=== PATIENT | female | born 1945 | race African-American/Black ===

== ENCOUNTER 2018-08-21 02:12 | Emergency (ER) | payer MEDICARE, MEDICAID ==
[~2018-08-21] VITALS: Ht 172.7 cm; Wt 105.0 kg
[~2018-08-21 02:12] MED LIST: ALLO100T PO; ASPI-1159 PO; ATEN100T PO; CLON-457 PO; ENAL5TAB75 PO; PRAV40TA58 PO
[2018-08-21] MEDS ORDERED: SODIUM CHLORIDE 0.9% 1,000 ML IV ONE (03:21)
[2018-08-21] MEDS ORDERED: ONDANSETRON HCL 4MG/2ML INJ IV STA (03:21)
[2018-08-21 03:54] LABS: HEMOGLOBIN. 10.7 g/dL (12.0-16.0); MEAN CORPUSCULAR HEMOGLOBIN 23.9 pg (28.0-32.0); MEAN CORPUSCULAR VOLUME 75.7 fL (81.0-99.0); MEAN PLATELET VOLUME 8.6 fl (7.4-10.4); PLATELET 318 x1000/uL (130-400); RED BLOOD CELL COUNT 4.49 mill/uL (4.2-5.4); RED CELL DISTRIBUTION WIDTH 17.5 % (11.6-14.6)
[2018-08-21 03:57] LABS: CHLORIDE 104 mEq/L (98-107)
[2018-08-21 04:00] LABS: PROTHROMBIN TIME 10.4 sec (9.1-11.1)
[2018-08-21 04:13] LABS: CLARITY URINE CLOUDY (CLEAR); COLOR URINE YELLOW (YELLOW); KETONES URINE NEGATIVE (NEGATIVE); LEUKOCYTE ESTERASE URINE 2+ (NEGATIVE); NITRITE URINE NEGATIVE (NEGATIVE); OCCULT BLOOD URINE NEGATIVE (NEGATIVE); PH URINE 5.5 (4.5-8.0); PROTEIN URINE NEGATIVE (NEGATIVE)
[2018-08-21 04:29] LABS: PLATELET ESTIMATE NORMAL
[2018-08-21] MEDS ORDERED: CEFTRIAXONE 1 G PREMIX 50 ML IV NR (04:30)
[2018-08-21 04:57] VITALS: BP 118/61
== END 2018-08-21 05:25 | disposition home or self-care (01) ==
LOC: ER 03:31 → CANBEDREQ 06:53
DX: R11.2 Nausea with vomiting, unspecified (principal); R19.7 Diarrhea, unspecified; N39.0 Urinary tract infection, site not specified
CPT/HCPCS: 36415; 80053; 81003; 83690; 85025; 85610; 96361; 96365; 96375; 99284; J0696; J2405; J7030

== ENCOUNTER 2020-05-19 10:58 | Inpatient (IN) | payer MEDICARE, MEDICAID ==
[~2020-05-19] VITALS: Ht 174 cm; Wt 101.6 kg
[~2020-05-19 10:58] MED LIST changes: -ASPI-1159 PO; +ASPI-1497 PO
[2020-05-19 11:47] LABS: MEAN CORPUSCULAR HEMOGLOBIN 24.3 pg (28.0-32.0); MEAN PLATELET VOLUME 8.5 fl (7.4-10.4); PLATELET 169 x1000/uL (130-400); RED BLOOD CELL COUNT 2.58 mill/uL (4.2-5.4); RED CELL DISTRIBUTION WIDTH 16.5 % (11.6-14.6)
[2020-05-19 11:54] LABS: CHLORIDE 122 mEq/L (98-107)
[2020-05-19 11:55] LABS: CLARITY URINE TURBID (CLEAR); COLOR URINE DARK YELLOW (YELLOW); KETONES URINE TRACE (NEGATIVE); LEUKOCYTE ESTERASE URINE 3+ (NEGATIVE); NITRITE URINE NEGATIVE (NEGATIVE); OCCULT BLOOD URINE NEGATIVE (NEGATIVE); PROTEIN URINE 1+ (NEGATIVE); SPECIFIC GRAVITY URINE 1.018 (1.005-1.030)
[2020-05-19 11:56] LABS: INR 1.3; PROTHROMBIN TIME 13.9 sec (9.6-11.0)
[2020-05-19 12:01] LABS: HEMATOCRIT. 20.1 % (36.0-48.0); HEMOGLOBIN. 6.3 g/dL (12.0-16.0)
[2020-05-19 12:02] LABS: BASOPHILS % 0.6 % (0.0-2.0); EOSINOPHILS % 1.4 % (0.0-5.0); MONOCYTES % 7.5 % (2.0-8.0); NEUTROPHILS % 67.5 % (40.0-76.0)
[2020-05-19] MEDS ORDERED: SODIUM CHLORIDE 0.9% 1,000 ML IV ONE (13:11)
[2020-05-19] MEDS ORDERED: POTASSIUM CHLORIDE 20MEQ TABLET SR PO ONE (13:15)
[2020-05-19] MEDS ORDERED: METRONIDAZOLE 500 MG PREMIX 100 ML IV ONE (14:45)
[2020-05-19] MEDS ORDERED: LEVOFLOXACIN 750MG PREMIX 150 ML IV ONE (14:45)
[2020-05-19] MEDS ORDERED: CLONIDINE 0.1MG TABLET PO PRN (18:00)
[2020-05-19] MEDS ORDERED: ACETAMINOPHEN 325MG TABLET PO PRN ×2 (18:00)
[2020-05-19] MEDS ORDERED: ONDANSETRON HCL 4MG/2ML INJ IV PRN (18:00)
[2020-05-19] MEDS ORDERED: DIPHENHYDRAMINE 50MG/ML VIAL IV PRN (18:00)
[2020-05-19] MEDS ORDERED: CALCIUM GLUCONATE 100MG/ML 10ML VIAL IV ONE (19:30)
[2020-05-19 19:48] LABS: TOTAL IRON BINDING CAPACITY 216 ug/dL (250-450)
[2020-05-19] MEDS ORDERED: ZOLPIDEM TARTRATE 5MG TABLET PO PRN (20:00)
[2020-05-19 20:25] VITALS: BP 134/83
[2020-05-19] MEDS ORDERED: CALCIUM GLUCONATE 1000 MG in DEXTROSE 5% WATER 100 ML IV NR (20:30)
[2020-05-19] MEDS ORDERED: MAGNESIUM 4 G PREMIX 100 ML IV NR (21:00)
[2020-05-19] MEDS ORDERED: CEFTRIAXONE 1 G PREMIX 50 ML IV SCH (21:00)
[2020-05-19] MEDS ORDERED: METRONIDAZOLE 500 MG PREMIX 100 ML IV SCH (22:00)
[2020-05-19] MEDS ORDERED: POTASSIUM PHOS,M-BASIC-D-BASIC 30 MMOL in DEXT 5% WATER 500 ML IV NR (22:00)
[2020-05-19] MEDS: DEXT 5%/0.45% NACL KCL 40MEQ/L 1,000 ML IV SCH (22:14)
[2020-05-19] MEDS: FAMOTIDINE 20MG/2ML VIAL IV SCH (22:14)
[2020-05-19] MEDS: CEFTRIAXONE 1,000 MG in DEXTROSE 5% WATER 50 ML IV SCH (22:59)
[2020-05-20] VITALS (7 sets, daily range): BP systolic 119–136; BP diastolic 63–73
[2020-05-20 00:06] LABS: BASOPHILS % 0.5 % (0.0-2.0); EOSINOPHILS % 2.7 % (0.0-5.0); HEMATOCRIT. 32.8 % (36.0-48.0); HEMOGLOBIN. 10.5 g/dL (12.0-16.0); MEAN CORPUSCULAR VOLUME 77.8 fL (81.0-99.0); MEAN PLATELET VOLUME 8.5 fl (7.4-10.4); NEUTROPHILS % 63.8 % (40.0-76.0); PLATELET 242 x1000/uL (130-400); RED BLOOD CELL COUNT 4.22 mill/uL (4.2-5.4)
[2020-05-20 00:10] LABS: INR 1.1; PROTHROMBIN TIME 11.7 sec (9.6-11.0)
[2020-05-20] MEDS: DEXT 5%/0.45% NACL KCL 40MEQ/L 1,000 ML IV SCH (06:35)
[2020-05-20 06:42] LABS: CHLORIDE 107 mEq/L (98-107)
[2020-05-20 06:50] LABS: BASOPHILS % 0.4 % (0.0-2.0); EOSINOPHILS % 3.1 % (0.0-5.0); HEMATOCRIT. 32.2 % (36.0-48.0); HEMOGLOBIN. 10.5 g/dL (12.0-16.0); LYMPHOCYTES % 21.2 % (20.0-50.0); MEAN CORPUSCULAR HEMOGLOBIN 24.9 pg (28.0-32.0); MEAN CORPUSCULAR VOLUME 76.5 fL (81.0-99.0); MONOCYTES % 9.7 % (2.0-8.0); NEUTROPHILS % 65.6 % (40.0-76.0); PLATELET 252 x1000/uL (130-400); RED CELL DISTRIBUTION WIDTH 16.4 % (11.6-14.6)
[2020-05-20] MEDS: FAMOTIDINE 20MG/2ML VIAL IV SCH ×2 (09:59→21:11)
[2020-05-20] MEDS ORDERED: DEXT 5%/0.45% NACL 1000ML 1,000 ML IV SCH ×2 (11:00→15:05)
[2020-05-20] MEDS ORDERED: LEVOFLOXACIN 500MG PREMIX 100 ML IV SCH (15:00)
[2020-05-20] MEDS: IRON SUCROSE COMPLEX 100 MG/5 ML ML IV SCH (16:10)
[2020-05-20] MEDS ORDERED: FERROUS SULFATE 325MG TABLET PO SCH (17:50)
[2020-05-20] MEDS: CEFTRIAXONE 1,000 MG in DEXTROSE 5% WATER 50 ML IV SCH (21:11)
[2020-05-21] VITALS: BP 121/73
[2020-05-21 04:00] VITALS: BP 113/52
[2020-05-21 08:00] VITALS: BP 112/63
[2020-05-21] MEDS: FAMOTIDINE 20MG/2ML VIAL IV SCH (08:06)
[2020-05-21 12:00] VITALS: BP 146/59
[2020-05-21] MEDS: IRON SUCROSE COMPLEX 100 MG/5 ML ML IV SCH (14:46)
[2020-05-21 15:12] VITALS: BP 112/63
== END 2020-05-21 16:01 | disposition home or self-care (01) | DRG 811 ==
LOC: ER 11:03 → EDBEDREQ 14:45 → EDBEDREQTM 14:45 → ENRESERV 19:43 → 6WST 20:27
PROVIDERS: ADMIT Internal Medicine; ATTEND Internal Medicine
PROC: 30233N1 Transfusion of Nonautologous Red Blood Cells into Peripheral Vein, Percutaneous Approach (ICD-10-PCS; principal; 2020-05-19)
DX: D50.9 Iron deficiency anemia, unspecified (principal); E43 Unspecified severe protein-calorie malnutrition; N39.0 Urinary tract infection, site not specified; K57.32 Diverticulitis of large intestine without perforation or abscess without bleeding; E87.6 Hypokalemia; E83.51 Hypocalcemia; I10 Essential (primary) hypertension; Z96.651 Presence of right artificial knee joint; E78.00 Pure hypercholesterolemia, unspecified; M10.9 Gout, unspecified; F41.9 Anxiety disorder, unspecified; M19.90 Unspecified osteoarthritis, unspecified site; K59.00 Constipation, unspecified; Z68.33 Body mass index [BMI] 33.0-33.9, adult; Z82.49 Family history of ischemic heart disease and other diseases of the circulatory system; Z90.711 Acquired absence of uterus with remaining cervical stump
CPT/HCPCS: 36415; 74176; 80048; 80053; 81003; 82270; 82728; 83520; 83540; 83550; 83735; 84100; 85025; 85384; 86850; 86900; 86920; 93005; 99291; J0610; J0696; J1956; J3475; J3490; J7030; J7060; P9016

== ENCOUNTER 2021-01-24 02:30 | Emergency (ER) | payer MEDICARE, MEDICAID ==
[~2021-01-24] VITALS: Ht 172.7 cm; Wt 94.0 kg
[2021-01-24 02:37] VITALS: BP 155/82
== END 2021-01-24 04:04 | disposition home or self-care (01) ==
LOC: ER 02:30
DX: H93.12 Tinnitus, left ear (principal); I10 Essential (primary) hypertension; E78.00 Pure hypercholesterolemia, unspecified
CPT/HCPCS: 99282

== ENCOUNTER 2022-02-01 08:44 | Emergency (ER) | payer MEDICARE, MEDICAID ==
[~2022-02-01] VITALS: Ht 172.7 cm; Wt 87.0 kg
[2022-02-01] MEDS ORDERED: NAPR-677 MT (10:11)
[2022-02-01] MEDS ORDERED: CIPR-263 MT (10:11)
[2022-02-01] MEDS ORDERED: PYR200 MT (10:11)
[2022-02-01 10:33] VITALS: BP 115/71
[2022-02-01 12:02] LABS: CLARITY URINE CLOUDY (CLEAR); COLOR URINE YELLOW (YELLOW); KETONES URINE NEGATIVE (NEGATIVE); LEUKOCYTE ESTERASE URINE 1+ (NEGATIVE); NITRITE URINE NEGATIVE (NEGATIVE); OCCULT BLOOD URINE NEGATIVE (NEGATIVE); PH URINE 5.5 (4.5-8.0); PROTEIN URINE 3+ (NEGATIVE); SPECIFIC GRAVITY URINE 1.017 (1.005-1.030); UROBILINOGEN URINE 0.2 E.U./dL (0.2-1.0)
== END 2022-02-01 10:34 | disposition home or self-care (01) ==
LOC: ER 08:44
DX: N39.0 Urinary tract infection, site not specified (principal); K59.00 Constipation, unspecified; Z87.19 Personal history of other diseases of the digestive system
CPT/HCPCS: 81003; 99283

== ENCOUNTER 2022-02-23 21:04 | Emergency (ER) | payer MEDICARE, MEDICAID ==
[~2022-02-23] VITALS: Ht 172.7 cm; Wt 88.0 kg
[~2022-02-23 21:04] MED LIST changes: +CHOL2000; +CIPR-263 MT; +FERR325T6 MT; +INDO50CA98 PO; +NAPR-677 MT; +OMEP20CA14 MT; +PYR200 MT
[2022-02-23 21:19] VITALS: BP 142/100
[2022-02-23 22:55] LABS: CLARITY URINE TURBID (CLEAR); COLOR URINE DARK YELLOW (YELLOW); KETONES URINE TRACE (NEGATIVE); LEUKOCYTE ESTERASE URINE 3+ (NEGATIVE); NITRITE URINE NEGATIVE (NEGATIVE); OCCULT BLOOD URINE 3+ (NEGATIVE); PROTEIN URINE 2+ (NEGATIVE); SPECIFIC GRAVITY URINE 1.014 (1.005-1.030); UROBILINOGEN URINE 0.2 E.U./dL (0.2-1.0)
== END 2022-02-23 23:40 | disposition home or self-care (01) ==
LOC: ER 21:04
DX: N39.0 Urinary tract infection, site not specified (principal); R31.0 Gross hematuria; Z43.6 Encounter for attention to other artificial openings of urinary tract; I10 Essential (primary) hypertension
CPT/HCPCS: 81003; 99283

== ENCOUNTER 2022-03-03 06:38 | Emergency (ER) | payer MEDICARE, MEDICAID ==
[~2022-03-03] VITALS: Ht 172.7 cm; Wt 90.0 kg
[2022-03-03] MEDS ORDERED: ONDANSETRON HCL 4MG/2ML INJ IV STA (06:58)
[2022-03-03] MEDS ORDERED: SODIUM CHLORIDE 0.9% 1,000 ML IV ONE (07:00)
[2022-03-03 07:29] LABS: BASOPHILS % 0.8 % (0.0-2.0); EOSINOPHILS % 2.9 % (0.0-5.0); HEMATOCRIT. 30.7 % (36.0-48.0); HEMOGLOBIN. 9.6 g/dL (12.0-16.0); LYMPHOCYTES % 16.9 % (20.0-50.0); MEAN CORPUSCULAR HEMOGLOBIN 23.3 pg (28.0-32.0); MEAN CORPUSCULAR VOLUME 74.8 fL (81.0-99.0); MEAN PLATELET VOLUME 8.5 fl (7.4-10.4); MONOCYTES % 8.5 % (2.0-8.0); NEUTROPHILS % 70.9 % (40.0-76.0); PLATELET 366 x1000/uL (130-400); RED BLOOD CELL COUNT 4.11 mill/uL (4.2-5.4); RED CELL DISTRIBUTION WIDTH 15.8 % (11.6-14.6)
[2022-03-03 08:11] LABS: CHLORIDE 100 mEq/L (98-107)
[2022-03-03 08:24] LABS: CLARITY URINE CLOUDY (CLEAR); COLOR URINE YELLOW (YELLOW); KETONES URINE NEGATIVE (NEGATIVE); LEUKOCYTE ESTERASE URINE 3+ (NEGATIVE); NITRITE URINE NEGATIVE (NEGATIVE); OCCULT BLOOD URINE 1+ (NEGATIVE); PROTEIN URINE TRACE (NEGATIVE); SPECIFIC GRAVITY URINE 1.006 (1.005-1.030); UROBILINOGEN URINE 0.2 E.U./dL (0.2-1.0)
[2022-03-03 10:00] VITALS: BP 120/53
[2022-03-03] MEDS ORDERED: ONDA4TAB50 MT (10:34)
== END 2022-03-03 11:43 | disposition home or self-care (01) ==
LOC: ER 06:38
DX: R11.2 Nausea with vomiting, unspecified (principal); E78.00 Pure hypercholesterolemia, unspecified; I10 Essential (primary) hypertension; Z87.440 Personal history of urinary (tract) infections; Z90.710 Acquired absence of both cervix and uterus; Z79.899 Other long term (current) drug therapy
CPT/HCPCS: 36415; 80053; 81003; 85025; 87086; 87106; 96361; 96374; 99283; J2405; J7030

== ENCOUNTER 2022-03-23 11:26 | Emergency (ER) | payer MEDICARE, MEDICAID ==
[~2022-03-23] VITALS: Ht 160 cm; Wt 91.0 kg
[~2022-03-23 11:26] MED LIST changes: +ONDA4TAB50 MT
[2022-03-23] MEDS ORDERED: ACETAMINOPHEN 325MG TABLET PO ONE (12:45)
[2022-03-23 13:01] LABS: HEMATOCRIT. 35.5 % (36.0-48.0); HEMOGLOBIN. 11.3 g/dL (12.0-16.0); MEAN CORPUSCULAR HEMOGLOBIN 23.3 pg (28.0-32.0); MEAN CORPUSCULAR VOLUME 73.4 fL (81.0-99.0); MEAN PLATELET VOLUME 7.8 fl (7.4-10.4); PLATELET 272 x1000/uL (130-400); RED BLOOD CELL COUNT 4.83 mill/uL (4.2-5.4); RED CELL DISTRIBUTION WIDTH 15.5 % (11.6-14.6)
[2022-03-23 13:42] LABS: PLATELET ESTIMATE NORMAL
[2022-03-23 13:48] LABS: CLARITY URINE CLOUDY (CLEAR); COLOR URINE YELLOW (YELLOW); KETONES URINE NEGATIVE (NEGATIVE); LEUKOCYTE ESTERASE URINE 3+ (NEGATIVE); NITRITE URINE NEGATIVE (NEGATIVE); OCCULT BLOOD URINE 3+ (NEGATIVE); PROTEIN URINE TRACE (NEGATIVE); SPECIFIC GRAVITY URINE 1.006 (1.005-1.030); UROBILINOGEN URINE 0.2 E.U./dL (0.2-1.0)
[2022-03-23] MEDS ORDERED: CEFTRIAXONE 1 G PREMIX 50 ML IV ONE (14:15)
[2022-03-23 14:47] VITALS: BP 142/73
[2022-03-23] MEDS ORDERED: DIF15 MT (14:52)
[2022-03-23] MEDS ORDERED: CIPR-263 MT (14:52)
== END 2022-03-23 15:00 | disposition home or self-care (01) ==
LOC: ER 11:26
DX: R30.0 Dysuria (principal); N39.0 Urinary tract infection, site not specified; E78.00 Pure hypercholesterolemia, unspecified; I10 Essential (primary) hypertension; Z87.440 Personal history of urinary (tract) infections; Z90.710 Acquired absence of both cervix and uterus; Z79.899 Other long term (current) drug therapy
CPT/HCPCS: 96365; 99284; J0696; 36415; 76857; 80048; 81003; 85025; 87106

== ENCOUNTER 2022-03-24 07:41 | Inpatient (IN) | payer MEDICARE, MEDICAID ==
[~2022-03-24] VITALS: Ht 162.6 cm; Wt 63.5 kg
[~2022-03-24 07:41] MED LIST changes: +DIF15 MT
[2022-03-24] MEDS ORDERED: ONDANSETRON HCL 4MG/2ML INJ IV STA (08:05)
[2022-03-24] MEDS ORDERED: IOHEXOL-350 100 ML BOTTLE ONE (08:41)
[2022-03-24 09:05] LABS: BASOPHILS % 0.5 % (0.0-2.0); EOSINOPHILS % 1.2 % (0.0-5.0); HEMATOCRIT. 34.4 % (36.0-48.0); LYMPHOCYTES % 27.3 % (20.0-50.0); MEAN CORPUSCULAR HEMOGLOBIN 23.7 pg (28.0-32.0); MEAN CORPUSCULAR VOLUME 74.1 fL (81.0-99.0); MEAN PLATELET VOLUME 7.9 fl (7.4-10.4); MONOCYTES % 13.6 % (2.0-8.0); NEUTROPHILS % 57.4 % (40.0-76.0); PLATELET 289 x1000/uL (130-400); RED BLOOD CELL COUNT 4.64 mill/uL (4.2-5.4); RED CELL DISTRIBUTION WIDTH 15.1 % (11.6-14.6)
[2022-03-24] MEDS ORDERED: ASPIRIN 81MG TABLET PO ONE (09:15)
[2022-03-24 09:17] LABS: CHLORIDE 88 mEq/L (98-107)
[2022-03-24 09:26] LABS: CLARITY URINE TURBID (CLEAR); COLOR URINE DARK YELLOW (YELLOW); KETONES URINE NEGATIVE (NEGATIVE); LEUKOCYTE ESTERASE URINE 3+ (NEGATIVE); NITRITE URINE NEGATIVE (NEGATIVE); OCCULT BLOOD URINE 3+ (NEGATIVE); PROTEIN URINE 1+ (NEGATIVE); UROBILINOGEN URINE 0.2 E.U./dL (0.2-1.0)
[2022-03-24] MEDS ORDERED: CEFTRIAXONE 1 G PREMIX 50 ML IV ONE (11:45)
[2022-03-24] MEDS ORDERED: CEFTRIAXONE 1,000 MG in DEXTROSE 5% WATER 50 ML IV NR (12:00)
[2022-03-24] MEDS ORDERED: CEFTRIAXONE 1 G PREMIX 50 ML IV SCH (12:45)
[2022-03-24] MEDS ORDERED: DIPHENHYDRAMINE 50MG/ML VIAL IV PRN (12:45)
[2022-03-24] MEDS ORDERED: ZOLPIDEM TARTRATE 5MG TABLET PO PRN (12:45)
[2022-03-24] MEDS ORDERED: CLONIDINE 0.1MG TABLET PO PRN (12:45)
[2022-03-24] MEDS ORDERED: LORAZEPAM 0.5MG TABLET PO PRN (12:45)
[2022-03-24] MEDS ORDERED: MAGNESIUM/ALUMINUM HYDROXIDE/SIMETHICONE 30ML UDC PO PRN (12:45)
[2022-03-24] MEDS ORDERED: ACETAMINOPHEN 325MG TABLET PO PRN (12:45)
[2022-03-24] MEDS ORDERED: ONDANSETRON HCL 4MG/2ML INJ IV PRN (12:45)
[2022-03-24 14:00] VITALS: BP_SYST 143; BP_SYST 177; BP_DIAS 71; BP_DIAS 88
[2022-03-24] MEDS ORDERED: ERGOCALCIFEROL 50000UNITS CAPSULE PO SCH (14:00)
[2022-03-24] MEDS: SODIUM CHLORIDE 0.9% 1,000 ML IV SCH ×2 (14:28→22:45)
[2022-03-24 16:00] VITALS: BP 139/69
[2022-03-24] MEDS: SODIUM CHLORIDE 1000MG TABLET PO SCH (17:03)
[2022-03-24] MEDS: ACETAMINOPHEN 325MG TABLET PO PRN (19:01)
[2022-03-24 20:00] VITALS: BP 113/63
[2022-03-24] MEDS: ENALAPRIL 5MG TABLET PO SCH (21:00)
[2022-03-24] MEDS: ATORVASTATIN CALCIUM 20MG TABLET PO SCH (22:03)
[2022-03-25] VITALS: BP 120/80
[2022-03-25] MEDS: SODIUM CHLORIDE 0.9% 1,000 ML IV SCH ×2 (00:59→17:36)
[2022-03-25 06:57] LABS: PHOSPHORUS 3.2 mg/dL (2.5-4.9)
[2022-03-25 08:00] VITALS: BP 102/57
[2022-03-25] MEDS: ENALAPRIL 5MG TABLET PO SCH ×2 (08:10→23:40)
[2022-03-25] MEDS: SODIUM CHLORIDE 1000MG TABLET PO SCH ×3 (08:39→17:35)
[2022-03-25] MEDS: ASPIRIN 81MG EC TABLET PO SCH (08:39)
[2022-03-25] MEDS: ALLOPURINOL 100 MG TABLET PO SCH (08:39)
[2022-03-25 12:00] VITALS: BP 122/59
[2022-03-25] MEDS: CEFTRIAXONE 1,000 MG in DEXTROSE 5% WATER 50 ML IV SCH (12:13)
[2022-03-25] MEDS: ACETAMINOPHEN 325MG TABLET PO PRN (12:23)
[2022-03-25] MEDS ORDERED: MAGNESIUM 4 G PREMIX 100 ML IV SCH (13:00)
[2022-03-25 16:00] VITALS: BP 103/74
[2022-03-25 20:00] VITALS: BP 125/58
[2022-03-25] MEDS: ATORVASTATIN CALCIUM 20MG TABLET PO SCH (23:39)
[2022-03-26] VITALS: BP 119/58
[2022-03-26] MEDS: CLOTRIMAZOLE 1% CREAM 15GM TOP SCH ×3 (03:25→21:38)
[2022-03-26 04:55] VITALS: BP 99/53
[2022-03-26] MEDS: SODIUM CHLORIDE 0.9% 1,000 ML IV SCH ×2 (05:14→14:43)
[2022-03-26 08:00] VITALS: BP 130/64
[2022-03-26 08:03] LABS: CHLORIDE 105 mEq/L (98-107)
[2022-03-26] MEDS: ASPIRIN 81MG EC TABLET PO SCH (08:51)
[2022-03-26] MEDS: ENALAPRIL 5MG TABLET PO SCH ×2 (08:51→21:38)
[2022-03-26] MEDS: ALLOPURINOL 100 MG TABLET PO SCH (08:51)
[2022-03-26] MEDS: SODIUM CHLORIDE 1000MG TABLET PO SCH ×3 (08:51→18:06)
[2022-03-26 12:00] VITALS: BP 114/68
[2022-03-26] MEDS: CEFTRIAXONE 1,000 MG in DEXTROSE 5% WATER 50 ML IV SCH (12:52)
[2022-03-26 16:00] VITALS: BP 111/70
[2022-03-26] MEDS: PHENAZOPYRIDINE HCL 100MG TABLET PO SCH (18:06)
[2022-03-26 20:00] VITALS: BP 166/83
[2022-03-26] MEDS: ATORVASTATIN CALCIUM 20MG TABLET PO SCH (21:38)
[2022-03-27] VITALS: BP 148/65
[2022-03-27] MEDS: SODIUM CHLORIDE 0.9% 1,000 ML IV SCH (00:45)
[2022-03-27 04:00] VITALS: BP 124/71
[2022-03-27 06:34] LABS: BASOPHILS % 0.4 % (0.0-2.0); HEMATOCRIT. 29.6 % (36.0-48.0); HEMOGLOBIN. 9.5 g/dL (12.0-16.0); LYMPHOCYTES % 24.9 % (20.0-50.0); MEAN CORPUSCULAR HEMOGLOBIN 23.6 pg (28.0-32.0); MEAN CORPUSCULAR VOLUME 73.2 fL (81.0-99.0); MEAN PLATELET VOLUME 7.7 fl (7.4-10.4); MONOCYTES % 10.4 % (2.0-8.0); NEUTROPHILS % 59.3 % (40.0-76.0); PLATELET 303 x1000/uL (130-400); RED BLOOD CELL COUNT 4.05 mill/uL (4.2-5.4); RED CELL DISTRIBUTION WIDTH 15.4 % (11.6-14.6)
[2022-03-27 07:31] LABS: CHLORIDE 106 mEq/L (98-107)
[2022-03-27 07:40] LABS: PHOSPHORUS 2.6 mg/dL (2.5-4.9)
[2022-03-27 08:00] VITALS: BP 149/74
[2022-03-27] MEDS: ENALAPRIL 5MG TABLET PO SCH (08:20)
[2022-03-27] MEDS: SODIUM CHLORIDE 1000MG TABLET PO SCH ×2 (08:20→13:24)
[2022-03-27] MEDS: ASPIRIN 81MG EC TABLET PO SCH (08:20)
[2022-03-27] MEDS: PHENAZOPYRIDINE HCL 100MG TABLET PO SCH ×2 (08:21→13:24)
[2022-03-27] MEDS: ALLOPURINOL 100 MG TABLET PO SCH (08:21)
[2022-03-27] MEDS: CLOTRIMAZOLE 1% CREAM 15GM TOP SCH (08:21)
[2022-03-27] MEDS ORDERED: MAGNESIUM 4 G PREMIX 100 ML IV SCH (11:00)
[2022-03-27 12:00] VITALS: BP 143/74
[2022-03-27] MEDS: CEFTRIAXONE 1,000 MG in DEXTROSE 5% WATER 50 ML IV SCH (13:24)
[2022-03-27 16:00] VITALS: BP 140/68
[2022-03-27 16:54] VITALS: BP 120/72
== END 2022-03-27 18:37 | disposition home or self-care (01) | DRG 640 ==
LOC: ER 08:21 → 7EST 11:05 → EDBEDREQ 11:14 → EDBEDREQSVC 11:14 → ENRESERV 12:30
PROVIDERS: ADMIT Internal Medicine; ATTEND Internal Medicine
DX: E87.1 Hypo-osmolality and hyponatremia (principal); U07.1 COVID-19; G93.40 Encephalopathy, unspecified; N17.9 Acute kidney failure, unspecified; N32.1 Vesicointestinal fistula; N39.0 Urinary tract infection, site not specified; R47.01 Aphasia; E78.00 Pure hypercholesterolemia, unspecified; E83.42 Hypomagnesemia; E86.0 Dehydration; Z96.651 Presence of right artificial knee joint; M19.90 Unspecified osteoarthritis, unspecified site; M10.9 Gout, unspecified; F41.9 Anxiety disorder, unspecified; I10 Essential (primary) hypertension; Z82.0 Family history of epilepsy and other diseases of the nervous system; Z82.49 Family history of ischemic heart disease and other diseases of the circulatory system; Z90.711 Acquired absence of uterus with remaining cervical stump; Z79.899 Other long term (current) drug therapy; Z79.82 Long term (current) use of aspirin; Z87.440 Personal history of urinary (tract) infections
CPT/HCPCS: 36415; 70496; 71045; 76857; 80048; 80053; 81003; 83036; 83605; 83735; 84100; 84484; 85025; 87106; 87426; 93005; 99291; C9803; J0696; J2405; J3475; J7030; J7060; Q9967; A4315

== ENCOUNTER 2022-03-30 20:41 | Emergency (ER) | payer MEDICARE, MEDICAID ==
[~2022-03-30] VITALS: Ht 165.1 cm; Wt 80.1 kg
[2022-03-30 21:27] VITALS: BP 114/59
== END 2022-03-31 01:45 | disposition left against medical advice (07) ==
LOC: ER 20:41
DX: Z53.21 Procedure and treatment not carried out due to patient leaving prior to being seen by health care provider (principal)

== ENCOUNTER 2022-04-15 21:59 | Inpatient (IN) | payer MEDICARE, MEDICAID ==
[~2022-04-15] VITALS: Ht 174 cm; Wt 79.4 kg
[2022-04-15 22:05] VITALS: BP 114/69
[2022-04-15] MEDS ORDERED: ACETAMINOPHEN 650MG SUPP PR PRN (23:00)
[2022-04-15] MEDS ORDERED: ONDANSETRON HCL 4MG TABLET PO PRN (23:00)
[2022-04-15] MEDS ORDERED: ACETAMINOPHEN 325MG TABLET PO PRN (23:00)
[2022-04-15] MEDS ORDERED: GUAIFENESIN 200MG/10ML SUGAR FREE UDC PO PRN (23:00)
[2022-04-15] MEDS ORDERED: NALOXONE HCL 0.4MG/ML VIAL IV PRN (23:30)
[2022-04-15] MEDS: PIPERACILLIN/TAZOBACTAM 3.375 G in DEXTROSE 5% WATER 50 ML IV SCH (23:55)
[2022-04-16] MEDS: PIPERACILLIN/TAZOBACTAM 3.375 G in DEXTROSE 5% WATER 50 ML IV SCH ×3 (06:15→21:00)
[2022-04-16] MEDS: HYDROCODONE/ACETAMINOPHEN 5/325MG TABLET PO PRN ×3 (06:23→17:43)
[2022-04-16 07:32] LABS: HEMATOCRIT. 25.9 % (36.0-48.0); HEMOGLOBIN. 8.3 g/dL (12.0-16.0); MEAN CORPUSCULAR HEMOGLOBIN 23.5 pg (28.0-32.0); MEAN CORPUSCULAR VOLUME 73.5 fL (81.0-99.0); MEAN PLATELET VOLUME 7.5 fl (7.4-10.4); PLATELET 473 x1000/uL (130-400); RED BLOOD CELL COUNT 3.52 mill/uL (4.2-5.4); RED CELL DISTRIBUTION WIDTH 16.2 % (11.6-14.6)
[2022-04-16 07:47] LABS: CHLORIDE 102 mEq/L (98-107)
[2022-04-16 08:00] VITALS: BP 126/61
[2022-04-16] MEDS ORDERED: POTASSIUM CHLORIDE 20MEQ TABLET SR PO NR ×2 (08:00→10:30)
[2022-04-16] MEDS ORDERED: POTASSIUM CHLORIDE 20MEQ TABLET SR PO SCH ×2 (09:00→12:30)
[2022-04-16] MEDS: LACTULOSE 20G/30ML UDC PO SCH (10:39)
[2022-04-16] MEDS: ENOXAPARIN 40MG/0.4ML SYR SUBCUT SCH (10:39)
[2022-04-16] MEDS: ATENOLOL 50 MG TABLET PO SCH (10:40)
[2022-04-16] MEDS: ALLOPURINOL 100 MG TABLET PO SCH (10:41)
[2022-04-16] MEDS: PANTOPRAZOLE 40MG DR TABLET PO SCH (10:41)
[2022-04-16 12:52] LABS: PLATELET ESTIMATE INCREASED
[2022-04-16 20:31] VITALS: BP 113/65
[2022-04-16] MEDS ORDERED: BISACODYL 10MG SUPP PR NR (21:00)
[2022-04-17] MEDS: HYDROCODONE/ACETAMINOPHEN 5/325MG TABLET PO PRN ×2 (01:45→09:53)
[2022-04-17] MEDS: PIPERACILLIN/TAZOBACTAM 3.375 G in DEXTROSE 5% WATER 50 ML IV SCH (06:01)
[2022-04-17 06:07] LABS: HEMATOCRIT. 26.6 % (36.0-48.0); MEAN CORPUSCULAR HEMOGLOBIN 24.6 pg (28.0-32.0); MEAN CORPUSCULAR VOLUME 73.2 fL (81.0-99.0); MEAN PLATELET VOLUME 7.6 fl (7.4-10.4); PLATELET 502 x1000/uL (130-400); RED BLOOD CELL COUNT 3.64 mill/uL (4.2-5.4); RED CELL DISTRIBUTION WIDTH 16.5 % (11.6-14.6)
[2022-04-17 06:37] LABS: CHLORIDE 103 mEq/L (98-107)
[2022-04-17 06:55] LABS: TOTAL IRON BINDING CAPACITY 259 ug/dL (250-450)
[2022-04-17 07:12] LABS: FOLIC ACID (FOLATE) SERUM 6.1 ng/mL (>5.38)
[2022-04-17 08:00] VITALS: BP 123/62
[2022-04-17] MEDS: LACTULOSE 20G/30ML UDC PO SCH (09:00)
[2022-04-17] MEDS: ALLOPURINOL 100 MG TABLET PO SCH (09:51)
[2022-04-17] MEDS: PANTOPRAZOLE 40MG DR TABLET PO SCH (09:51)
[2022-04-17] MEDS: ATENOLOL 50 MG TABLET PO SCH (09:52)
[2022-04-17 09:53] VITALS: BP 123/62
[2022-04-17] MEDS: ENOXAPARIN 40MG/0.4ML SYR SUBCUT SCH (09:53)
[2022-04-17 10:50] LABS: PLATELET ESTIMATE INCREASED
[2022-04-17] MEDS ORDERED: APIXABAN 5 MG TABLET PO SCH ×2 (17:00)
[2022-04-17] MEDS ORDERED: ATORVASTATIN CALCIUM 10MG TABLET PO SCH (21:00)
[2022-04-21 17:06] LABS: 25-HYDROXY VITAMIN D3 34 ng/mL (.)
== END 2022-04-17 15:13 | disposition short-term general hospital (02) | DRG 872 ==
PROVIDERS: ADMIT Internal Medicine; ATTEND Internal Medicine
DX: A41.9 Sepsis, unspecified organism (principal); N32.1 Vesicointestinal fistula; N39.0 Urinary tract infection, site not specified; I82.432 Acute embolism and thrombosis of left popliteal vein; E87.1 Hypo-osmolality and hyponatremia; L02.211 Cutaneous abscess of abdominal wall; D64.9 Anemia, unspecified; I10 Essential (primary) hypertension; E78.00 Pure hypercholesterolemia, unspecified; M19.90 Unspecified osteoarthritis, unspecified site; M10.9 Gout, unspecified; F41.9 Anxiety disorder, unspecified; E66.01 Morbid (severe) obesity due to excess calories; R53.81 Other malaise; R26.9 Unspecified abnormalities of gait and mobility; Z96.651 Presence of right artificial knee joint; K57.90 Diverticulosis of intestine, part unspecified, without perforation or abscess without bleeding; E87.6 Hypokalemia; G51.0 Bell's palsy; Z87.440 Personal history of urinary (tract) infections; Z79.899 Other long term (current) drug therapy; Z90.711 Acquired absence of uterus with remaining cervical stump; Z86.16 Personal history of COVID-19; Z79.01 Long term (current) use of anticoagulants; Z82.49 Family history of ischemic heart disease and other diseases of the circulatory system; Z86.73 Personal history of transient ischemic attack (TIA), and cerebral infarction without residual deficits; Z90.49 Acquired absence of other specified parts of digestive tract; Z68.26 Body mass index [BMI] 26.0-26.9, adult
CPT/HCPCS: 36415; 74018; 80048; 80053; 82306; 82607; 82728; 82746; 83540; 83550; 83735; 84134; 84443; 85025; 93970; 97161; 97166; J1650; J2543; J7060

== ENCOUNTER 2022-04-17 16:25 | Inpatient (IN) | payer MEDICARE, MEDICAID ==
[~2022-04-17] VITALS: Ht 172.7 cm; Wt 68.0 kg
[2022-04-17 16:00] VITALS: BP 138/72
[2022-04-17] MEDS: ASPIRIN 81MG EC TABLET PO SCH ×2 (17:45→18:13)
[2022-04-17] MEDS ORDERED: ONDANSETRON HCL 4MG TABLET PO PRN (17:45)
[2022-04-17] MEDS: OMEPRAZOLE 20MG CAPSULE EXTENDED RELEASE PO SCH ×2 (17:45→18:13)
[2022-04-17] MEDS: ALLOPURINOL 100 MG TABLET PO SCH ×2 (17:45→18:13)
[2022-04-17] MEDS: ACETAMINOPHEN 325MG TABLET PO NR ×2 (18:13→18:21)
[2022-04-17] MEDS: HYDROCODONE/ACETAMINOPHEN 10/325MG TABLET PO PRN (18:16)
[2022-04-17] MEDS: ATENOLOL 50 MG TABLET PO SCH (18:22)
[2022-04-17 19:47] VITALS: BP 138/72
[2022-04-17 19:52] LABS: HEMATOCRIT 26.1 % (36.0-48.0); HEMOGLOBIN 8.2 g/dL (12.0-16.0); MEAN CORPUSCULAR HEMOGLOBIN 23.1 pg (28.0-32.0); MEAN CORPUSCULAR VOLUME 73.7 fL (81.0-99.0); PLATELET 503 x1000/uL (130-400); RED BLOOD CELL COUNT 3.54 mill/uL (4.2-5.4); RED CELL DISTRIBUTION WIDTH 16.2 % (11.6-14.6)
[2022-04-17 20:00] VITALS: BP 115/61
[2022-04-17 20:02] LABS: CHLORIDE 103 mEq/L (98-107)
[2022-04-17] MEDS ORDERED: NALOXONE HCL 0.4MG/ML VIAL IV PRN (20:15)
[2022-04-17] MEDS: ATORVASTATIN CALCIUM 10MG TABLET PO SCH (21:57)
[2022-04-17] MEDS: PIPERACILLIN/TAZOBACTAM 3.375 G in DEXTROSE 5% WATER 50 ML IV SCH (21:58)
[2022-04-18] VITALS: BP 111/64
[2022-04-18] MEDS: HYDROCODONE/ACETAMINOPHEN 10/325MG TABLET PO PRN ×3 (00:42→17:09)
[2022-04-18 04:00] VITALS: BP 137/75
[2022-04-18] MEDS: PIPERACILLIN/TAZOBACTAM 3.375 G in DEXTROSE 5% WATER 50 ML IV SCH ×3 (05:39→22:33)
[2022-04-18 06:33] LABS: BASOPHILS % 0.2 % (0.0-2.0); HEMOGLOBIN. 8.6 g/dL (12.0-16.0); LYMPHOCYTES % 8.5 % (20.0-50.0); MEAN CORPUSCULAR HEMOGLOBIN 23.7 pg (28.0-32.0); MEAN CORPUSCULAR VOLUME 74.4 fL (81.0-99.0); MEAN PLATELET VOLUME 7.5 fl (7.4-10.4); MONOCYTES % 7.8 % (2.0-8.0); NEUTROPHILS % 81.5 % (40.0-76.0); PLATELET 538 x1000/uL (130-400); RED BLOOD CELL COUNT 3.64 mill/uL (4.2-5.4); RED CELL DISTRIBUTION WIDTH 16.9 % (11.6-14.6)
[2022-04-18 07:38] LABS: CHLORIDE 103 mEq/L (98-107)
[2022-04-18 07:47] LABS: PHOSPHORUS 2.4 mg/dL (2.5-4.9)
[2022-04-18 08:20] VITALS: BP 114/69
[2022-04-18] MEDS: ATENOLOL 50 MG TABLET PO SCH (09:00)
[2022-04-18] MEDS: ASPIRIN 81MG EC TABLET PO SCH (09:14)
[2022-04-18] MEDS: APIXABAN 5 MG TABLET PO SCH ×2 (09:14→17:09)
[2022-04-18] MEDS: OMEPRAZOLE 20MG CAPSULE EXTENDED RELEASE PO SCH (09:14)
[2022-04-18] MEDS: ALLOPURINOL 100 MG TABLET PO SCH ×2 (09:15→17:09)
[2022-04-18] MEDS: POTASSIUM CHLORIDE 10MEQ TABLET SR PO SCH (11:05)
[2022-04-18 12:03] VITALS: BP 101/65
[2022-04-18 16:00] VITALS: BP 112/62
[2022-04-18 20:00] VITALS: BP 120/87
[2022-04-18] MEDS: ATORVASTATIN CALCIUM 10MG TABLET PO SCH (22:34)
[2022-04-19] VITALS: BP 142/74
[2022-04-19] MEDS: HYDROCODONE/ACETAMINOPHEN 10/325MG TABLET PO PRN ×3 (00:49→17:48)
[2022-04-19 04:00] VITALS: BP 140/66
[2022-04-19 06:37] LABS: CHLORIDE 106 mEq/L (98-107)
[2022-04-19] MEDS: PIPERACILLIN/TAZOBACTAM 3.375 G in DEXTROSE 5% WATER 50 ML IV SCH ×3 (06:38→22:05)
[2022-04-19 07:10] LABS: BASOPHILS % 0.4 % (0.0-2.0); EOSINOPHILS % 2.6 % (0.0-5.0); HEMOGLOBIN. 8.8 g/dL (12.0-16.0); LYMPHOCYTES % 10.3 % (20.0-50.0); MEAN CORPUSCULAR HEMOGLOBIN 24.2 pg (28.0-32.0); MEAN CORPUSCULAR VOLUME 74.2 fL (81.0-99.0); MEAN PLATELET VOLUME 7.6 fl (7.4-10.4); MONOCYTES % 9.8 % (2.0-8.0); NEUTROPHILS % 76.9 % (40.0-76.0); PLATELET 570 x1000/uL (130-400); RED BLOOD CELL COUNT 3.64 mill/uL (4.2-5.4); RED CELL DISTRIBUTION WIDTH 16.5 % (11.6-14.6)
[2022-04-19 08:00] VITALS: BP 144/63
[2022-04-19] MEDS: LACTULOSE 20G/30ML UDC PO PRN (10:58)
[2022-04-19] MEDS: DOCUSATE SODIUM 100MG CAPSULE PO SCH (10:58)
[2022-04-19] MEDS: POTASSIUM CHLORIDE 10MEQ TABLET SR PO SCH (10:59)
[2022-04-19] MEDS: ASPIRIN 81MG EC TABLET PO SCH (10:59)
[2022-04-19] MEDS: OMEPRAZOLE 20MG CAPSULE EXTENDED RELEASE PO SCH (10:59)
[2022-04-19] MEDS: ATENOLOL 50 MG TABLET PO SCH (10:59)
[2022-04-19] MEDS: APIXABAN 5 MG TABLET PO SCH ×2 (10:59→17:51)
[2022-04-19] MEDS: ALLOPURINOL 100 MG TABLET PO SCH ×2 (11:01→17:51)
[2022-04-19 12:00] VITALS: BP 140/70
[2022-04-19 16:00] VITALS: BP 135/73
[2022-04-19] MEDS ORDERED: DOCU-150 MT (16:40)
[2022-04-19] MEDS ORDERED: ENAL20TA18 MT (16:40)
[2022-04-19 20:00] VITALS: BP 158/76
[2022-04-19] MEDS: ATORVASTATIN CALCIUM 10MG TABLET PO SCH (22:05)
[2022-04-19] MEDS ORDERED: MAGNESIUM 2 G PREMIX 50 ML IV NR (23:00)
[2022-04-19] MEDS ORDERED: SODIUM PHOS,M-BASIC-D-BASIC 15 MM in DEXT 5% WATER 245 ML IV NR (23:30)
[2022-04-20] VITALS: BP 114/64
[2022-04-20] MEDS: HYDROCODONE/ACETAMINOPHEN 10/325MG TABLET PO PRN ×2 (00:56→20:41)
[2022-04-20 08:00] VITALS: BP 118/57
[2022-04-20] MEDS: PIPERACILLIN/TAZOBACTAM 3.375 G in DEXTROSE 5% WATER 50 ML IV SCH ×3 (08:00→21:50)
[2022-04-20] MEDS: ASPIRIN 81MG EC TABLET PO SCH (09:00)
[2022-04-20] MEDS: ATENOLOL 50 MG TABLET PO SCH (09:00)
[2022-04-20] MEDS: ALLOPURINOL 100 MG TABLET PO SCH ×2 (09:00→16:19)
[2022-04-20] MEDS: FAMOTIDINE 20MG TABLET PO SCH ×2 (09:00→20:41)
[2022-04-20] MEDS: APIXABAN 5 MG TABLET PO SCH ×2 (09:00→16:19)
[2022-04-20 12:00] VITALS: BP 119/67
[2022-04-20] MEDS: DOCUSATE SODIUM 100MG CAPSULE PO SCH (12:13)
[2022-04-20] MEDS: POTASSIUM CHLORIDE 10MEQ TABLET SR PO SCH (12:13)
[2022-04-20] MEDS: MAGNESIUM OXIDE 400MG TABLET PO SCH (14:29)
[2022-04-20] MEDS ORDERED: MORPHINE SULFATE 2 MG/ML CPJ (NOT FOR IM USE) IV NR (15:15)
[2022-04-20 16:00] VITALS: BP 135/67
[2022-04-20 19:54] VITALS: BP 106/53
[2022-04-20] MEDS: ATORVASTATIN CALCIUM 10MG TABLET PO SCH (20:43)
[2022-04-21] VITALS: BP 117/60
[2022-04-21 03:56] VITALS: BP_SYST 127; BP_SYST 135; BP_DIAS 88; BP_DIAS 91
[2022-04-21] MEDS: PIPERACILLIN/TAZOBACTAM 3.375 G in DEXTROSE 5% WATER 50 ML IV SCH ×3 (05:19→21:59)
[2022-04-21] MEDS: HYDROCODONE/ACETAMINOPHEN 10/325MG TABLET PO PRN ×3 (05:20→20:32)
[2022-04-21 07:14] LABS: BASOPHILS % 0.4 % (0.0-2.0); EOSINOPHILS % 1.5 % (0.0-5.0); HEMATOCRIT. 26.8 % (36.0-48.0); HEMOGLOBIN. 8.8 g/dL (12.0-16.0); LYMPHOCYTES % 7.2 % (20.0-50.0); MEAN CORPUSCULAR HEMOGLOBIN 23.9 pg (28.0-32.0); MEAN CORPUSCULAR VOLUME 73.1 fL (81.0-99.0); MEAN PLATELET VOLUME 7.5 fl (7.4-10.4); MONOCYTES % 9.2 % (2.0-8.0); NEUTROPHILS % 81.7 % (40.0-76.0); PLATELET 630 x1000/uL (130-400); RED BLOOD CELL COUNT 3.67 mill/uL (4.2-5.4); RED CELL DISTRIBUTION WIDTH 16.4 % (11.6-14.6)
[2022-04-21 07:25] LABS: CHLORIDE 100 mEq/L (98-107)
[2022-04-21 08:00] VITALS: BP 126/71
[2022-04-21] MEDS: MAGNESIUM OXIDE 400MG TABLET PO SCH (08:40)
[2022-04-21] MEDS: POTASSIUM CHLORIDE 10MEQ TABLET SR PO SCH (08:40)
[2022-04-21] MEDS: DOCUSATE SODIUM 100MG CAPSULE PO SCH (08:40)
[2022-04-21] MEDS: APIXABAN 5 MG TABLET PO SCH ×2 (08:40→17:23)
[2022-04-21] MEDS: FAMOTIDINE 20MG TABLET PO SCH ×2 (08:40→20:32)
[2022-04-21] MEDS: ASPIRIN 81MG EC TABLET PO SCH (08:40)
[2022-04-21] MEDS: ALLOPURINOL 100 MG TABLET PO SCH ×2 (08:40→17:22)
[2022-04-21] MEDS: ATENOLOL 50 MG TABLET PO SCH (08:41)
[2022-04-21 11:55] VITALS: BP 122/54
[2022-04-21 16:00] VITALS: BP 118/62
[2022-04-21] MEDS: ONDANSETRON HCL 4MG/2ML INJ IV PRN (19:57)
[2022-04-21 20:00] VITALS: BP 100/57
[2022-04-21] MEDS: ATORVASTATIN CALCIUM 10MG TABLET PO SCH (20:32)
[2022-04-22] VITALS: BP 99/58
[2022-04-22] MEDS: HYDROCODONE/ACETAMINOPHEN 10/325MG TABLET PO PRN ×3 (02:50→20:58)
[2022-04-22 04:00] VITALS: BP 94/54
[2022-04-22] MEDS: PIPERACILLIN/TAZOBACTAM 3.375 G in DEXTROSE 5% WATER 50 ML IV SCH ×2 (05:37→14:29)
[2022-04-22 08:28] VITALS: BP 89/47
[2022-04-22] MEDS: ATENOLOL 50 MG TABLET PO SCH (08:43)
[2022-04-22] MEDS: ASPIRIN 81MG EC TABLET PO SCH (09:00)
[2022-04-22] MEDS: MAGNESIUM OXIDE 400MG TABLET PO SCH (09:00)
[2022-04-22] MEDS: APIXABAN 5 MG TABLET PO SCH (09:00)
[2022-04-22] MEDS: ALPRAZOLAM 0.25 MG TABLET PO SCH ×2 (09:00→16:47)
[2022-04-22] MEDS: POTASSIUM CHLORIDE 10MEQ TABLET SR PO SCH (10:08)
[2022-04-22] MEDS: DOCUSATE SODIUM 100MG CAPSULE PO SCH (10:08)
[2022-04-22] MEDS: ALLOPURINOL 100 MG TABLET PO SCH ×2 (10:08→16:47)
[2022-04-22] MEDS: FAMOTIDINE 20MG TABLET PO SCH ×2 (10:09→20:55)
[2022-04-22] MEDS: ONDANSETRON HCL 4MG/2ML INJ IV PRN (10:15)
[2022-04-22 12:00] VITALS: BP 86/56
[2022-04-22] MEDS ORDERED: SODIUM CHLORIDE 0.9% 1,000 ML IV ONE (15:45)
[2022-04-22 16:00] VITALS: BP 96/44
[2022-04-22] MEDS: PAROXETINE HCL 10MG TABLET PO SCH (18:10)
[2022-04-22 20:00] VITALS: BP 96/51
[2022-04-22] MEDS: ATORVASTATIN CALCIUM 10MG TABLET PO SCH (20:55)
[2022-04-23] VITALS: BP 92/49
[2022-04-23 04:00] VITALS: BP 106/58
[2022-04-23] MEDS: HYDROCODONE/ACETAMINOPHEN 10/325MG TABLET PO PRN ×3 (04:57→18:50)
[2022-04-23 07:43] VITALS: BP 94/55
[2022-04-23] MEDS: ATENOLOL 50 MG TABLET PO SCH (08:48)
[2022-04-23] MEDS: POTASSIUM CHLORIDE 10MEQ TABLET SR PO SCH (09:24)
[2022-04-23] MEDS: FAMOTIDINE 20MG TABLET PO SCH ×2 (09:24→21:45)
[2022-04-23] MEDS: ALPRAZOLAM 0.25 MG TABLET PO SCH ×2 (09:24→16:39)
[2022-04-23] MEDS: ASPIRIN 81MG EC TABLET PO SCH (09:24)
[2022-04-23] MEDS: DOCUSATE SODIUM 100MG CAPSULE PO SCH (09:24)
[2022-04-23] MEDS: PAROXETINE HCL 10MG TABLET PO SCH (09:24)
[2022-04-23] MEDS: ALLOPURINOL 100 MG TABLET PO SCH ×2 (09:24→16:39)
[2022-04-23] MEDS: MAGNESIUM OXIDE 400MG TABLET PO SCH (09:35)
[2022-04-23] MEDS: DEXT 5%/0.9% NACL 1,000 ML IV SCH ×2 (11:58→21:45)
[2022-04-23 12:00] VITALS: BP 92/48
[2022-04-23 16:14] VITALS: BP 86/41
[2022-04-23] MEDS: PIPERACILLIN/TAZOBACTAM 3.375 G in DEXTROSE 5% WATER 50 ML IV SCH ×2 (16:39→23:46)
[2022-04-23 20:00] VITALS: BP 111/43
[2022-04-23] MEDS: ATORVASTATIN CALCIUM 10MG TABLET PO SCH (21:45)
[2022-04-24] VITALS (17 sets, daily range): BP systolic 98–122; BP diastolic 35–61
[2022-04-24] MEDS: HYDROCODONE/ACETAMINOPHEN 10/325MG TABLET PO PRN (00:46)
[2022-04-24 06:17] LABS: BASOPHILS % 0.2 % (0.0-2.0); EOSINOPHILS % 1.1 % (0.0-5.0); LYMPHOCYTES % 9.8 % (20.0-50.0); MEAN CORPUSCULAR HEMOGLOBIN 23.6 pg (28.0-32.0); MEAN CORPUSCULAR VOLUME 73.2 fL (81.0-99.0); MEAN PLATELET VOLUME 7.4 fl (7.4-10.4); MONOCYTES % 4.4 % (2.0-8.0); NEUTROPHILS % 84.5 % (40.0-76.0); PLATELET 602 x1000/uL (130-400); RED CELL DISTRIBUTION WIDTH 16.5 % (11.6-14.6)
[2022-04-24] MEDS: PIPERACILLIN/TAZOBACTAM 3.375 G in DEXTROSE 5% WATER 50 ML IV SCH ×3 (06:51→21:18)
[2022-04-24] MEDS: DEXT 5%/0.9% NACL 1,000 ML IV SCH ×2 (06:51→16:35)
[2022-04-24 07:42] LABS: HEMOGLOBIN. 5.2 g/dL (12.0-16.0)
[2022-04-24 07:43] LABS: HEMATOCRIT. 16.1 % (36.0-48.0)
[2022-04-24] MEDS: PAROXETINE HCL 10MG TABLET PO SCH (08:40)
[2022-04-24] MEDS: MAGNESIUM OXIDE 400MG TABLET PO SCH (08:40)
[2022-04-24] MEDS: ALPRAZOLAM 0.25 MG TABLET PO SCH ×2 (08:40→16:13)
[2022-04-24] MEDS: ALLOPURINOL 100 MG TABLET PO SCH ×2 (08:40→16:13)
[2022-04-24] MEDS: POTASSIUM CHLORIDE 10MEQ TABLET SR PO SCH (08:40)
[2022-04-24] MEDS: FAMOTIDINE 20MG TABLET PO SCH ×2 (08:40→21:17)
[2022-04-24] MEDS: ASPIRIN 81MG EC TABLET PO SCH (08:40)
[2022-04-24] MEDS: DOCUSATE SODIUM 100MG CAPSULE PO SCH (08:40)
[2022-04-24] MEDS: ATENOLOL 50 MG TABLET PO SCH (09:00)
[2022-04-24] MEDS ORDERED: IRON SUCROSE COMPLEX 100 MG/5 ML ML IV SCH (11:45)
[2022-04-24] MEDS: ATORVASTATIN CALCIUM 10MG TABLET PO SCH (21:17)
[2022-04-24 23:53] LABS: HEMOGLOBIN 8.5 g/dL (12.0-16.0)
[2022-04-25] VITALS: BP 138/60
[2022-04-25] MEDS: HYDROCODONE/ACETAMINOPHEN 10/325MG TABLET PO PRN ×2 (01:49→14:27)
[2022-04-25] MEDS: DEXT 5%/0.9% NACL 1,000 ML IV SCH ×3 (03:30→23:30)
[2022-04-25 04:00] VITALS: BP 106/57
[2022-04-25] MEDS: PIPERACILLIN/TAZOBACTAM 3.375 G in DEXTROSE 5% WATER 50 ML IV SCH ×3 (05:26→21:42)
[2022-04-25 06:59] LABS: HEMATOCRIT. 26.4 % (36.0-48.0); HEMOGLOBIN. 8.9 g/dL (12.0-16.0); MEAN CORPUSCULAR HEMOGLOBIN 27.2 pg (28.0-32.0); MEAN CORPUSCULAR VOLUME 80.6 fL (81.0-99.0); MEAN PLATELET VOLUME 7.3 fl (7.4-10.4); PLATELET 537 x1000/uL (130-400); RED BLOOD CELL COUNT 3.27 mill/uL (4.2-5.4); RED CELL DISTRIBUTION WIDTH 18.6 % (11.6-14.6)
[2022-04-25 08:00] VITALS: BP 140/66
[2022-04-25] MEDS: FAMOTIDINE 20MG TABLET PO SCH ×2 (09:00→21:42)
[2022-04-25] MEDS: POTASSIUM CHLORIDE 10MEQ TABLET SR PO SCH (09:00)
[2022-04-25] MEDS: ASPIRIN 81MG EC TABLET PO SCH (09:00)
[2022-04-25] MEDS: ALPRAZOLAM 0.25 MG TABLET PO SCH ×2 (09:00→16:17)
[2022-04-25] MEDS: ALLOPURINOL 100 MG TABLET PO SCH ×2 (09:00→16:19)
[2022-04-25] MEDS: ATENOLOL 50 MG TABLET PO SCH (09:00)
[2022-04-25] MEDS ORDERED: BUPIVACAINE HCL 0.5% (5MG/ML) 50ML ONE (09:57)
[2022-04-25] MEDS ORDERED: POLYMYXIN B SULFATE 500000 UNITS/VIAL ONE (10:00)
[2022-04-25] MEDS ORDERED: FENTANYL CITRATE/PF 50MCG/ML 2ML VIAL ONE (11:04)
[2022-04-25] MEDS ORDERED: PROPOFOL 200MG/20ML VIAL IV ONE (11:05)
[2022-04-25 12:45] VITALS: BP 126/60
[2022-04-25] MEDS: DOCUSATE SODIUM 100MG CAPSULE PO SCH (14:26)
[2022-04-25] MEDS: PAROXETINE HCL 10MG TABLET PO SCH (14:28)
[2022-04-25] MEDS: MAGNESIUM OXIDE 400MG TABLET PO SCH (14:28)
[2022-04-25 16:00] VITALS: BP 112/57
[2022-04-25 20:00] VITALS: BP 126/70
[2022-04-25] MEDS: ATORVASTATIN CALCIUM 10MG TABLET PO SCH (21:42)
[2022-04-26] VITALS: BP 123/72
[2022-04-26 01:56] LABS: PLATELET ESTIMATE INCREASED
[2022-04-26 04:00] VITALS: BP 133/63
[2022-04-26] MEDS: PIPERACILLIN/TAZOBACTAM 3.375 G in DEXTROSE 5% WATER 50 ML IV SCH ×3 (06:38→21:00)
[2022-04-26 06:55] LABS: HEMATOCRIT. 26.7 % (36.0-48.0); HEMOGLOBIN. 8.9 g/dL (12.0-16.0); MEAN CORPUSCULAR VOLUME 80.8 fL (81.0-99.0); MEAN PLATELET VOLUME 7.3 fl (7.4-10.4); PLATELET 562 x1000/uL (130-400); RED CELL DISTRIBUTION WIDTH 19.1 % (11.6-14.6)
[2022-04-26 08:00] VITALS: BP_SYST 138; BP_SYST 156; BP_DIAS 65; BP_DIAS 68
[2022-04-26 08:06] LABS: NUCLEATED RED BLOOD CELLS 1 /100 WBC; PLATELET ESTIMATE INCREASED
[2022-04-26] MEDS: ASPIRIN 81MG EC TABLET PO SCH (08:20)
[2022-04-26] MEDS: MAGNESIUM OXIDE 400MG TABLET PO SCH (10:28)
[2022-04-26] MEDS: DOCUSATE SODIUM 100MG CAPSULE PO SCH (10:28)
[2022-04-26] MEDS: FAMOTIDINE 20MG TABLET PO SCH ×2 (10:28→20:57)
[2022-04-26] MEDS: ALPRAZOLAM 0.25 MG TABLET PO SCH ×2 (10:28→19:06)
[2022-04-26] MEDS: PAROXETINE HCL 10MG TABLET PO SCH (10:29)
[2022-04-26] MEDS: ATENOLOL 50 MG TABLET PO SCH (10:29)
[2022-04-26] MEDS: POTASSIUM CHLORIDE 10MEQ TABLET SR PO SCH (10:29)
[2022-04-26] MEDS: LACTULOSE 20G/30ML UDC PO PRN (10:32)
[2022-04-26] MEDS: ALLOPURINOL 100 MG TABLET PO SCH ×2 (10:32→17:32)
[2022-04-26 12:00] VITALS: BP 162/72
[2022-04-26 16:00] VITALS: BP 122/69
[2022-04-26 16:10] LABS: INR 1.1; PARTIAL THROMBOPLASTIN TIME 29.3 sec (23.4-31.0); PROTHROMBIN TIME 11.3 sec (9.6-11.0)
[2022-04-26] MEDS ORDERED: CLONIDINE 0.1MG TABLET PO PRN (16:30)
[2022-04-26] MEDS: HYDROCODONE/ACETAMINOPHEN 10/325MG TABLET PO PRN (17:32)
[2022-04-26 20:00] VITALS: BP 124/61
[2022-04-26] MEDS: ATORVASTATIN CALCIUM 10MG TABLET PO SCH (20:57)
[2022-04-27] VITALS (11 sets, daily range): BP systolic 101–143; BP diastolic 61–81
[2022-04-27] MEDS: DEXT 5%/0.9% NACL 1,000 ML IV SCH ×2 (05:30→15:44)
[2022-04-27] MEDS: PIPERACILLIN/TAZOBACTAM 3.375 G in DEXTROSE 5% WATER 50 ML IV SCH ×3 (06:30→21:40)
[2022-04-27] MEDS ORDERED: LIDOCAINE HCL 1% 50ML VIAL (10MG/ML) ONE (07:20)
[2022-04-27] MEDS ORDERED: IOHEXOL-300 100 ML BOTTLE ONE (07:20)
[2022-04-27] MEDS: ATENOLOL 50 MG TABLET PO SCH (09:00)
[2022-04-27] MEDS: MAGNESIUM OXIDE 400MG TABLET PO SCH (09:00)
[2022-04-27] MEDS: ASPIRIN 81MG EC TABLET PO SCH (09:00)
[2022-04-27] MEDS: ALPRAZOLAM 0.25 MG TABLET PO SCH (09:59)
[2022-04-27] MEDS: PAROXETINE HCL 10MG TABLET PO SCH (10:00)
[2022-04-27] MEDS: ALLOPURINOL 100 MG TABLET PO SCH ×2 (10:01→16:30)
[2022-04-27] MEDS: DOCUSATE SODIUM 100MG CAPSULE PO SCH (10:02)
[2022-04-27] MEDS: POTASSIUM CHLORIDE 10MEQ TABLET SR PO SCH (10:02)
[2022-04-27] MEDS: FAMOTIDINE 20MG TABLET PO SCH ×2 (10:02→21:39)
[2022-04-27] MEDS: LACTULOSE 20G/30ML UDC PO PRN (15:49)
[2022-04-27 17:06] LABS: HEMATOCRIT. 28.6 % (36.0-48.0); HEMOGLOBIN. 9.2 g/dL (12.0-16.0); MEAN CORPUSCULAR HEMOGLOBIN 26.4 pg (28.0-32.0); MEAN CORPUSCULAR VOLUME 82.1 fL (81.0-99.0); MEAN PLATELET VOLUME 6.9 fl (7.4-10.4); PLATELET 603 x1000/uL (130-400); RED BLOOD CELL COUNT 3.48 mill/uL (4.2-5.4); RED CELL DISTRIBUTION WIDTH 19.8 % (11.6-14.6)
[2022-04-27 18:11] LABS: PLATELET ESTIMATE MARKEDLY INCREASED
[2022-04-27] MEDS: ATORVASTATIN CALCIUM 10MG TABLET PO SCH (21:40)
[2022-04-27] MEDS ORDERED: NALOXONE HCL 0.4MG/ML VIAL IV PRN (22:30)
[2022-04-27] MEDS: HYDROCODONE/ACETAMINOPHEN 10/325MG TABLET PO PRN (22:49)
[2022-04-28] VITALS: BP 134/68
[2022-04-28] MEDS: DEXT 5%/0.9% NACL 1,000 ML IV SCH ×3 (00:32→21:30)
[2022-04-28 04:00] VITALS: BP 134/71
[2022-04-28] MEDS: PIPERACILLIN/TAZOBACTAM 3.375 G in DEXTROSE 5% WATER 50 ML IV SCH (05:27)
[2022-04-28 08:00] VITALS: BP 139/74
[2022-04-28 08:43] LABS: BASOPHILS % 0.3 % (0.0-2.0); EOSINOPHILS % 3.5 % (0.0-5.0); HEMATOCRIT. 30.3 % (36.0-48.0); HEMOGLOBIN. 9.4 g/dL (12.0-16.0); LYMPHOCYTES % 10.2 % (20.0-50.0); MEAN CORPUSCULAR HEMOGLOBIN 25.7 pg (28.0-32.0); MEAN CORPUSCULAR VOLUME 82.6 fL (81.0-99.0); MONOCYTES % 11.1 % (2.0-8.0); NEUTROPHILS % 74.9 % (40.0-76.0); PLATELET 630 x1000/uL (130-400); RED BLOOD CELL COUNT 3.67 mill/uL (4.2-5.4); RED CELL DISTRIBUTION WIDTH 19.8 % (11.6-14.6)
[2022-04-28] MEDS: ATENOLOL 50 MG TABLET PO SCH (08:43)
[2022-04-28] MEDS: FAMOTIDINE 20MG TABLET PO SCH ×2 (08:43→21:35)
[2022-04-28] MEDS: ASPIRIN 81MG EC TABLET PO SCH (08:43)
[2022-04-28] MEDS: ALLOPURINOL 100 MG TABLET PO SCH ×2 (08:43→18:43)
[2022-04-28] MEDS: PAROXETINE HCL 10MG TABLET PO SCH (08:43)
[2022-04-28] MEDS: POTASSIUM CHLORIDE 10MEQ TABLET SR PO SCH (08:44)
[2022-04-28] MEDS: DOCUSATE SODIUM 100MG CAPSULE PO SCH (08:44)
[2022-04-28] MEDS: MAGNESIUM OXIDE 400MG TABLET PO SCH (08:45)
[2022-04-28 08:49] LABS: CHLORIDE 105 mEq/L (98-107)
[2022-04-28 12:00] VITALS: BP 131/68
[2022-04-28] MEDS: HYDROCODONE/ACETAMINOPHEN 10/325MG TABLET PO PRN ×2 (12:22→17:55)
[2022-04-28 16:00] VITALS: BP 133/79
[2022-04-28] MEDS: AMOXICILLIN/POTASSIUM CLAVULANATE 500/125MG TAB PO SCH ×2 (18:43→21:41)
[2022-04-28 20:00] VITALS: BP 109/64
[2022-04-28] MEDS: ATORVASTATIN CALCIUM 10MG TABLET PO SCH (21:35)
[2022-04-28] MEDS: ONDANSETRON HCL 4MG/2ML INJ IV PRN (22:56)
[2022-04-29] VITALS: BP 136/71
[2022-04-29] MEDS: HYDROCODONE/ACETAMINOPHEN 10/325MG TABLET PO PRN ×4 (01:11→23:39)
[2022-04-29 04:00] VITALS: BP 131/78
[2022-04-29] MEDS: AMOXICILLIN/POTASSIUM CLAVULANATE 500/125MG TAB PO SCH ×3 (05:40→20:30)
[2022-04-29 07:34] LABS: HEMATOCRIT. 30.2 % (36.0-48.0); HEMOGLOBIN. 9.5 g/dL (12.0-16.0); MEAN CORPUSCULAR HEMOGLOBIN 25.6 pg (28.0-32.0); MEAN CORPUSCULAR VOLUME 81.4 fL (81.0-99.0); MEAN PLATELET VOLUME 6.8 fl (7.4-10.4); PLATELET 669 x1000/uL (130-400); RED BLOOD CELL COUNT 3.71 mill/uL (4.2-5.4); RED CELL DISTRIBUTION WIDTH 19.8 % (11.6-14.6)
[2022-04-29 08:00] VITALS: BP 134/69
[2022-04-29] MEDS: PAROXETINE HCL 10MG TABLET PO SCH (08:58)
[2022-04-29] MEDS: DOCUSATE SODIUM 100MG CAPSULE PO SCH (08:58)
[2022-04-29] MEDS: FAMOTIDINE 20MG TABLET PO SCH ×2 (08:58→20:29)
[2022-04-29] MEDS: ASPIRIN 81MG EC TABLET PO SCH (08:58)
[2022-04-29] MEDS: ALLOPURINOL 100 MG TABLET PO SCH ×2 (08:58→17:21)
[2022-04-29] MEDS: MAGNESIUM OXIDE 400MG TABLET PO SCH (09:00)
[2022-04-29] MEDS: POTASSIUM CHLORIDE 10MEQ TABLET SR PO SCH (09:00)
[2022-04-29] MEDS: ATENOLOL 50 MG TABLET PO SCH (09:16)
[2022-04-29 12:00] VITALS: BP 124/68
[2022-04-29 14:08] LABS: PLATELET ESTIMATE INCREASED
[2022-04-29 16:00] VITALS: BP 107/51
[2022-04-29 20:00] VITALS: BP 108/55
[2022-04-29] MEDS: ATORVASTATIN CALCIUM 10MG TABLET PO SCH (20:29)
[2022-04-30] VITALS: BP 111/67
[2022-04-30 04:00] VITALS: BP 129/66
[2022-04-30] MEDS: AMOXICILLIN/POTASSIUM CLAVULANATE 500/125MG TAB PO SCH ×3 (05:42→20:35)
[2022-04-30] MEDS: LACTULOSE 20G/30ML UDC PO PRN (05:47)
[2022-04-30] MEDS: HYDROCODONE/ACETAMINOPHEN 10/325MG TABLET PO PRN ×3 (05:48→22:27)
[2022-04-30 08:00] VITALS: BP 116/60
[2022-04-30] MEDS: POTASSIUM CHLORIDE 10MEQ TABLET SR PO SCH (09:00)
[2022-04-30] MEDS: DOCUSATE SODIUM 100MG CAPSULE PO SCH (09:36)
[2022-04-30] MEDS: FAMOTIDINE 20MG TABLET PO SCH ×2 (09:37→20:34)
[2022-04-30] MEDS: ASPIRIN 81MG EC TABLET PO SCH (09:37)
[2022-04-30] MEDS: PAROXETINE HCL 10MG TABLET PO SCH (09:37)
[2022-04-30] MEDS: MAGNESIUM OXIDE 400MG TABLET PO SCH (09:37)
[2022-04-30] MEDS: ALLOPURINOL 100 MG TABLET PO SCH ×2 (09:37→18:39)
[2022-04-30] MEDS: ATENOLOL 50 MG TABLET PO SCH (09:39)
[2022-04-30 10:02] LABS: BASOPHILS % 0.7 % (0.0-2.0); EOSINOPHILS % 5.2 % (0.0-5.0); HEMATOCRIT. 30.4 % (36.0-48.0); LYMPHOCYTES % 9.6 % (20.0-50.0); MEAN CORPUSCULAR HEMOGLOBIN 27.1 pg (28.0-32.0); MEAN CORPUSCULAR VOLUME 82.5 fL (81.0-99.0); MONOCYTES % 7.7 % (2.0-8.0); NEUTROPHILS % 76.8 % (40.0-76.0); PLATELET 688 x1000/uL (130-400); RED BLOOD CELL COUNT 3.68 mill/uL (4.2-5.4); RED CELL DISTRIBUTION WIDTH 19.9 % (11.6-14.6)
[2022-04-30 12:00] VITALS: BP 107/56
[2022-04-30 16:00] VITALS: BP 123/70
[2022-04-30 20:00] VITALS: BP 118/59
[2022-04-30] MEDS: ATORVASTATIN CALCIUM 10MG TABLET PO SCH (20:35)
[2022-04-30] MEDS: DEXT 5%/0.9% NACL 1,000 ML IV SCH (23:30)
[2022-05-01 04:00] VITALS: BP 123/67
[2022-05-01] MEDS: AMOXICILLIN/POTASSIUM CLAVULANATE 500/125MG TAB PO SCH ×2 (05:14→13:38)
[2022-05-01] MEDS: LACTULOSE 20G/30ML UDC PO PRN (05:26)
[2022-05-01] MEDS: HYDROCODONE/ACETAMINOPHEN 10/325MG TABLET PO PRN ×3 (05:26→18:19)
[2022-05-01 08:00] VITALS: BP 120/75
[2022-05-01] MEDS: POTASSIUM CHLORIDE 10MEQ TABLET SR PO SCH (08:17)
[2022-05-01] MEDS: DOCUSATE SODIUM 100MG CAPSULE PO SCH (08:18)
[2022-05-01] MEDS: FAMOTIDINE 20MG TABLET PO SCH ×2 (08:18→21:00)
[2022-05-01] MEDS: PAROXETINE HCL 10MG TABLET PO SCH (08:18)
[2022-05-01] MEDS: ALLOPURINOL 100 MG TABLET PO SCH ×2 (08:18→18:19)
[2022-05-01] MEDS: ASPIRIN 81MG EC TABLET PO SCH (08:18)
[2022-05-01] MEDS: ATENOLOL 50 MG TABLET PO SCH (08:19)
[2022-05-01] MEDS: MAGNESIUM OXIDE 400MG TABLET PO SCH (08:20)
[2022-05-01] MEDS: DEXT 5%/0.9% NACL 1,000 ML IV SCH ×2 (09:30→19:30)
[2022-05-01 12:00] VITALS: BP 140/89
[2022-05-01] MEDS ORDERED: DIATR MEGLU/DIATRIZOATE SOLN 120ML ONE (14:46)
[2022-05-01 16:00] VITALS: BP 127/89
[2022-05-01] MEDS: PIPERACILLIN/TAZOBACTAM 3.375 G in DEXTROSE 5% WATER 50 ML IV SCH (18:19)
[2022-05-01 20:00] VITALS: BP 135/73
[2022-05-01] MEDS: ATORVASTATIN CALCIUM 10MG TABLET PO SCH (21:00)
[2022-05-02] VITALS: BP 108/59
[2022-05-02 04:00] VITALS: BP 136/66
[2022-05-02] MEDS: DEXT 5%/0.9% NACL 1,000 ML IV SCH ×2 (05:25→15:30)
[2022-05-02] MEDS: PIPERACILLIN/TAZOBACTAM 3.375 G in DEXTROSE 5% WATER 50 ML IV SCH ×3 (05:26→21:07)
[2022-05-02 07:10] LABS: CHLORIDE 105 mEq/L (98-107)
[2022-05-02 07:25] LABS: HEMATOCRIT. 29.7 % (36.0-48.0); HEMOGLOBIN. 9.5 g/dL (12.0-16.0); MEAN CORPUSCULAR HEMOGLOBIN 26.5 pg (28.0-32.0); MEAN CORPUSCULAR VOLUME 82.7 fL (81.0-99.0); MEAN PLATELET VOLUME 6.9 fl (7.4-10.4); PLATELET 668 x1000/uL (130-400); RED BLOOD CELL COUNT 3.59 mill/uL (4.2-5.4); RED CELL DISTRIBUTION WIDTH 19.3 % (11.6-14.6)
[2022-05-02 08:00] VITALS: BP 110/68
[2022-05-02] MEDS: ATENOLOL 50 MG TABLET PO SCH (09:00)
[2022-05-02] MEDS: DOCUSATE SODIUM 100MG CAPSULE PO SCH (09:00)
[2022-05-02] MEDS: PAROXETINE HCL 10MG TABLET PO SCH (09:00)
[2022-05-02] MEDS: ALLOPURINOL 100 MG TABLET PO SCH ×2 (09:00→17:00)
[2022-05-02] MEDS: MAGNESIUM OXIDE 400MG TABLET PO SCH (09:00)
[2022-05-02] MEDS: FAMOTIDINE 20MG TABLET PO SCH ×2 (09:00→21:00)
[2022-05-02] MEDS: ASPIRIN 81MG EC TABLET PO SCH (09:00)
[2022-05-02] MEDS: POTASSIUM CHLORIDE 10MEQ TABLET SR PO SCH (09:00)
[2022-05-02] MEDS ORDERED: LIDOCAINE HCL 1% 30ML VIAL (10MG/ML) ONE (11:00)
[2022-05-02 11:17] LABS: PLATELET ESTIMATE INCREASED
[2022-05-02 12:00] VITALS: BP 112/60
[2022-05-02] MEDS: ONDANSETRON HCL 4MG/2ML INJ IV PRN (12:46)
[2022-05-02] MEDS: MORPHINE SULFATE 2 MG/ML CPJ (NOT FOR IM USE) IV PRN (14:24)
[2022-05-02 16:00] VITALS: BP 129/78
[2022-05-02 20:00] VITALS: BP 111/51
[2022-05-02] MEDS: ATORVASTATIN CALCIUM 10MG TABLET PO SCH (21:00)
[2022-05-03] VITALS: BP 120/59
[2022-05-03] MEDS: DEXT 5%/0.9% NACL 1,000 ML IV SCH ×2 (01:30→12:19)
[2022-05-03 04:00] VITALS: BP 113/53
[2022-05-03] MEDS: PIPERACILLIN/TAZOBACTAM 3.375 G in DEXTROSE 5% WATER 50 ML IV SCH ×3 (05:58→21:24)
[2022-05-03] MEDS: DOCUSATE SODIUM 100MG CAPSULE PO SCH (10:25)
[2022-05-03] MEDS: PAROXETINE HCL 10MG TABLET PO SCH (10:25)
[2022-05-03] MEDS: MAGNESIUM OXIDE 400MG TABLET PO SCH (10:25)
[2022-05-03] MEDS: ASPIRIN 81MG EC TABLET PO SCH (10:26)
[2022-05-03] MEDS: ATENOLOL 50 MG TABLET PO SCH (10:26)
[2022-05-03] MEDS: ALLOPURINOL 100 MG TABLET PO SCH ×2 (10:26→17:37)
[2022-05-03] MEDS: POTASSIUM CHLORIDE 10MEQ TABLET SR PO SCH (10:27)
[2022-05-03] MEDS: FAMOTIDINE 20MG TABLET PO SCH ×2 (10:27→21:23)
[2022-05-03] MEDS: MORPHINE SULFATE 2 MG/ML CPJ (NOT FOR IM USE) IV PRN ×2 (14:47→21:35)
[2022-05-03 20:00] VITALS: BP 113/56
[2022-05-03] MEDS: ATORVASTATIN CALCIUM 10MG TABLET PO SCH (21:23)
[2022-05-04] VITALS: BP 113/74
[2022-05-04] MEDS: PIPERACILLIN/TAZOBACTAM 3.375 G in DEXTROSE 5% WATER 50 ML IV SCH (05:01)
[2022-05-04] MEDS: MORPHINE SULFATE 2 MG/ML CPJ (NOT FOR IM USE) IV PRN ×2 (05:08→16:36)
[2022-05-04 07:42] LABS: BASOPHILS % 0.4 % (0.0-2.0); EOSINOPHILS % 1.2 % (0.0-5.0); HEMATOCRIT. 26.2 % (36.0-48.0); HEMOGLOBIN. 8.4 g/dL (12.0-16.0); LYMPHOCYTES % 7.2 % (20.0-50.0); MEAN CORPUSCULAR HEMOGLOBIN 25.8 pg (28.0-32.0); MEAN CORPUSCULAR VOLUME 80.9 fL (81.0-99.0); MEAN PLATELET VOLUME 6.6 fl (7.4-10.4); MONOCYTES % 8.9 % (2.0-8.0); NEUTROPHILS % 82.3 % (40.0-76.0); PLATELET 618 x1000/uL (130-400); RED BLOOD CELL COUNT 3.24 mill/uL (4.2-5.4); RED CELL DISTRIBUTION WIDTH 19.4 % (11.6-14.6)
[2022-05-04 07:43] LABS: CHLORIDE 110 mEq/L (98-107)
[2022-05-04 08:00] VITALS: BP 113/58
[2022-05-04] MEDS: FAMOTIDINE 20MG TABLET PO SCH (09:00)
[2022-05-04] MEDS ORDERED: POTASSIUM CHLORIDE 20MEQ TABLET SR PO NR (10:30)
[2022-05-04] MEDS: POTASSIUM CHLORIDE 10MEQ TABLET SR PO SCH (10:30)
[2022-05-04] MEDS: ATENOLOL 50 MG TABLET PO SCH (10:30)
[2022-05-04] MEDS: ASPIRIN 81MG EC TABLET PO SCH (10:30)
[2022-05-04] MEDS: ALLOPURINOL 100 MG TABLET PO SCH (10:31)
[2022-05-04] MEDS: MAGNESIUM OXIDE 400MG TABLET PO SCH (10:31)
[2022-05-04] MEDS: DOCUSATE SODIUM 100MG CAPSULE PO SCH (10:31)
[2022-05-04] MEDS: PAROXETINE HCL 10MG TABLET PO SCH (10:32)
[2022-05-04 12:00] VITALS: BP 112/56
[2022-05-04 16:00] VITALS: BP 126/62
[2022-05-04 16:40] VITALS: BP 126/62
== END 2022-05-04 17:29 | DRG 856 ==
LOC: 6WST 16:25 → 6EST 04-27 11:36
PROVIDERS: ADMIT Internal Medicine; ATTEND Internal Medicine
PROC: 30233N1 Transfusion of Nonautologous Red Blood Cells into Peripheral Vein, Percutaneous Approach (ICD-10-PCS; 2022-04-24)
PROC: 0W3F0ZZ Control Bleeding in Abdominal Wall, Open Approach (ICD-10-PCS; principal; 2022-04-25)
PROC: 06H03DZ Insertion of Intraluminal Device into Inferior Vena Cava, Percutaneous Approach (ICD-10-PCS; 2022-04-27)
PROC: 02HV33Z Insertion of Infusion Device into Superior Vena Cava, Percutaneous Approach (ICD-10-PCS; 2022-05-02)
PROC: B5181ZA Fluoroscopy of Superior Vena Cava using Low Osmolar Contrast, Guidance (ICD-10-PCS; 2022-05-02)
PROC: B548ZZA Ultrasonography of Superior Vena Cava, Guidance (ICD-10-PCS; 2022-05-02)
DX: T81.41XA Infection following a procedure, superficial incisional surgical site, initial encounter (principal); A41.9 Sepsis, unspecified organism; E43 Unspecified severe protein-calorie malnutrition; N39.0 Urinary tract infection, site not specified; I82.432 Acute embolism and thrombosis of left popliteal vein; N32.1 Vesicointestinal fistula; Z68.41 Body mass index [BMI] 40.0-44.9, adult; N17.9 Acute kidney failure, unspecified; K63.2 Fistula of intestine; Z20.822 Contact with and (suspected) exposure to COVID-19; E88.09 Other disorders of plasma-protein metabolism, not elsewhere classified; D63.1 Anemia in chronic kidney disease; R26.9 Unspecified abnormalities of gait and mobility; M19.90 Unspecified osteoarthritis, unspecified site; E78.00 Pure hypercholesterolemia, unspecified; E87.6 Hypokalemia; B99.8 Other infectious disease; E66.01 Morbid (severe) obesity due to excess calories; F32.A Depression, unspecified; E78.5 Hyperlipidemia, unspecified; F41.1 Generalized anxiety disorder; G51.0 Bell's palsy; M10.9 Gout, unspecified; I12.9 Hypertensive chronic kidney disease with stage 1 through stage 4 chronic kidney disease, or unspecified chronic kidney disease; N18.9 Chronic kidney disease, unspecified; Z86.73 Personal history of transient ischemic attack (TIA), and cerebral infarction without residual deficits; Z79.01 Long term (current) use of anticoagulants; Z86.718 Personal history of other venous thrombosis and embolism; Z90.49 Acquired absence of other specified parts of digestive tract; Z90.711 Acquired absence of uterus with remaining cervical stump; Z95.828 Presence of other vascular implants and grafts; Z82.49 Family history of ischemic heart disease and other diseases of the circulatory system; Y83.2 Surgical operation with anastomosis, bypass or graft as the cause of abnormal reaction of the patient, or of later complication, without mention of misadventure at the time of the procedure
CPT/HCPCS: 36415; 36573; 37191; 74176; 80048; 80076; 83735; 84100; 85014; 85018; 85025; 85027; 86850; 86900; 86920; 87070; 87076; 87077; 87186; 87426; 97162; 97164; 97166; 97530; C1725; C1769; C1880; C1893; J1644; J2270; J2405; J2543; J2704; J3010; J3475; J3490; J7042; J7060; P9016; Q9963; Q9967; A4315

== ENCOUNTER 2022-05-04 17:25 | Inpatient (IN) | payer MEDICARE, MEDICAID ==
[~2022-05-04] VITALS: Ht 172.7 cm; Wt 68.0 kg
[~2022-05-04 17:25] MED LIST changes: -ALLO100T PO; +DOCU-150 MT; +ENAL20TA18 MT; -ENAL5TAB75 PO
[2022-05-04 19:30] VITALS: BP 121/63
[2022-05-04 20:00] VITALS: BP 121/63
[2022-05-04] MEDS ORDERED: LACTULOSE 20G/30ML UDC PO PRN (20:15)
[2022-05-04] MEDS ORDERED: CLONIDINE 0.1MG TABLET PO PRN (20:15)
[2022-05-04] MEDS ORDERED: FAMOTIDINE 20MG TABLET PO SCH (21:00)
[2022-05-04] MEDS: ATORVASTATIN CALCIUM 10MG TABLET PO SCH (23:02)
[2022-05-04] MEDS: DOCUSATE SODIUM 100MG CAPSULE PO SCH (23:03)
[2022-05-04] MEDS: ALLOPURINOL 100 MG TABLET PO SCH (23:03)
[2022-05-04] MEDS: PIPERACILLIN/TAZOBACTAM 3.375 G in DEXTROSE 5% WATER 50 ML IV SCH (23:52)
[2022-05-05 06:01] LABS: CHLORIDE 108 mEq/L (98-107)
[2022-05-05 06:07] LABS: BASOPHILS % 0.6 % (0.0-2.0); EOSINOPHILS % 2.3 % (0.0-5.0); HEMATOCRIT. 26.8 % (36.0-48.0); HEMOGLOBIN. 8.6 g/dL (12.0-16.0); LYMPHOCYTES % 9.5 % (20.0-50.0); MEAN CORPUSCULAR VOLUME 81.5 fL (81.0-99.0); MONOCYTES % 11.8 % (2.0-8.0); NEUTROPHILS % 75.8 % (40.0-76.0); PLATELET 569 x1000/uL (130-400); RED BLOOD CELL COUNT 3.29 mill/uL (4.2-5.4); RED CELL DISTRIBUTION WIDTH 19.3 % (11.6-14.6)
[2022-05-05] MEDS: PIPERACILLIN/TAZOBACTAM 3.375 G in DEXTROSE 5% WATER 50 ML IV SCH ×3 (06:10→22:21)
[2022-05-05 08:00] VITALS: BP 117/66
[2022-05-05] MEDS ORDERED: ATENOLOL 50 MG TABLET PO SCH (09:00)
[2022-05-05] MEDS: DOCUSATE SODIUM 100MG CAPSULE PO SCH (09:23)
[2022-05-05] MEDS: MORPHINE SULFATE 2 MG/ML CPJ (NOT FOR IM USE) IV PRN (09:23)
[2022-05-05] MEDS: ASPIRIN 81MG EC TABLET PO SCH (09:24)
[2022-05-05] MEDS: POTASSIUM CHLORIDE 10MEQ TABLET SR PO SCH (09:24)
[2022-05-05] MEDS: MAGNESIUM OXIDE 400MG TABLET PO SCH (09:24)
[2022-05-05] MEDS: ATENOLOL 50 MG TABLET PO SCH (09:24)
[2022-05-05] MEDS: ALLOPURINOL 100 MG TABLET PO SCH ×2 (09:25→16:06)
[2022-05-05] MEDS: PAROXETINE HCL 10MG TABLET PO SCH (09:25)
[2022-05-05] MEDS ORDERED: POTASSIUM CHLORIDE 20MEQ TABLET SR PO NR (10:00)
[2022-05-05 10:20] LABS: PHOSPHORUS 2.1 mg/dL (2.5-4.9)
[2022-05-05 12:00] VITALS: BP 127/67
[2022-05-05] MEDS ORDERED: NALOXONE HCL 0.4MG/ML VIAL IV PRN (12:30)
[2022-05-05 16:00] VITALS: BP 120/61
[2022-05-05] MEDS: HYDROCODONE/ACETAMINOPHEN 5/325MG TABLET PO PRN (16:06)
[2022-05-05] MEDS ORDERED: POTASSIUM PHOS,M-BASIC-D-BASIC 20 MMOL in DEXT 5% WATER 243.3333 ML IV NR (18:00)
[2022-05-05 20:00] VITALS: BP 114/50
[2022-05-05] MEDS ORDERED: MAGNESIUM 2 G PREMIX 50 ML IV NR (21:00)
[2022-05-05] MEDS: ATORVASTATIN CALCIUM 10MG TABLET PO SCH (22:17)
[2022-05-05] MEDS: FAMOTIDINE 20MG TABLET PO SCH (22:18)
[2022-05-06] MEDS: PIPERACILLIN/TAZOBACTAM 3.375 G in DEXTROSE 5% WATER 50 ML IV SCH ×3 (05:42→21:25)
[2022-05-06 08:00] VITALS: BP 104/56
[2022-05-06 08:06] LABS: CHLORIDE 107 mEq/L (98-107)
[2022-05-06 08:10] LABS: PHOSPHORUS 2.4 mg/dL (2.5-4.9)
[2022-05-06] MEDS: PAROXETINE HCL 10MG TABLET PO SCH (09:00)
[2022-05-06] MEDS: ATENOLOL 50 MG TABLET PO SCH (09:00)
[2022-05-06] MEDS: MAGNESIUM OXIDE 400MG TABLET PO SCH (09:41)
[2022-05-06] MEDS: ALLOPURINOL 100 MG TABLET PO SCH ×2 (09:41→17:31)
[2022-05-06] MEDS: POTASSIUM CHLORIDE 10MEQ TABLET SR PO SCH (09:41)
[2022-05-06] MEDS: DOCUSATE SODIUM 100MG CAPSULE PO SCH (09:41)
[2022-05-06] MEDS: ASPIRIN 81MG EC TABLET PO SCH (09:41)
[2022-05-06] MEDS: HYDROCODONE/ACETAMINOPHEN 5/325MG TABLET PO PRN ×2 (09:42→17:31)
[2022-05-06] MEDS: MORPHINE SULFATE 2 MG/ML CPJ (NOT FOR IM USE) IV PRN (14:45)
[2022-05-06 20:00] VITALS: BP 111/57
[2022-05-06] MEDS: ATORVASTATIN CALCIUM 10MG TABLET PO SCH (21:25)
[2022-05-06] MEDS: FAMOTIDINE 20MG TABLET PO SCH (21:25)
[2022-05-07] MEDS: PIPERACILLIN/TAZOBACTAM 3.375 G in DEXTROSE 5% WATER 50 ML IV SCH ×3 (05:25→22:26)
[2022-05-07 08:00] VITALS: BP 121/63
[2022-05-07] MEDS: PAROXETINE HCL 10MG TABLET PO SCH (08:47)
[2022-05-07] MEDS: ATENOLOL 50 MG TABLET PO SCH (08:48)
[2022-05-07] MEDS: HYDROCODONE/ACETAMINOPHEN 5/325MG TABLET PO PRN ×3 (08:49→22:23)
[2022-05-07] MEDS: ASPIRIN 81MG EC TABLET PO SCH (08:49)
[2022-05-07] MEDS: DOCUSATE SODIUM 100MG CAPSULE PO SCH (08:49)
[2022-05-07] MEDS: ALLOPURINOL 100 MG TABLET PO SCH ×2 (08:49→17:50)
[2022-05-07] MEDS: MAGNESIUM OXIDE 400MG TABLET PO SCH (08:49)
[2022-05-07] MEDS: POTASSIUM CHLORIDE 10MEQ TABLET SR PO SCH (08:51)
[2022-05-07] MEDS: ONDANSETRON HCL 4MG/2ML INJ IV PRN (08:51)
[2022-05-07] MEDS: MORPHINE SULFATE 2 MG/ML CPJ (NOT FOR IM USE) IV PRN (13:35)
[2022-05-07 20:00] VITALS: BP 118/62
[2022-05-07] MEDS: FAMOTIDINE 20MG TABLET PO SCH (22:18)
[2022-05-07] MEDS: ATORVASTATIN CALCIUM 10MG TABLET PO SCH (22:18)
[2022-05-08] MEDS: HYDROCODONE/ACETAMINOPHEN 5/325MG TABLET PO PRN ×4 (05:51→21:47)
[2022-05-08 06:16] LABS: BASOPHILS % 0.8 % (0.0-2.0); EOSINOPHILS % 3.2 % (0.0-5.0); HEMATOCRIT. 26.5 % (36.0-48.0); HEMOGLOBIN. 8.4 g/dL (12.0-16.0); LYMPHOCYTES % 10.8 % (20.0-50.0); MEAN CORPUSCULAR HEMOGLOBIN 26.3 pg (28.0-32.0); MEAN CORPUSCULAR VOLUME 82.4 fL (81.0-99.0); MEAN PLATELET VOLUME 6.9 fl (7.4-10.4); MONOCYTES % 9.6 % (2.0-8.0); NEUTROPHILS % 75.6 % (40.0-76.0); PLATELET 479 x1000/uL (130-400); RED BLOOD CELL COUNT 3.21 mill/uL (4.2-5.4); RED CELL DISTRIBUTION WIDTH 19.4 % (11.6-14.6)
[2022-05-08] MEDS: PIPERACILLIN/TAZOBACTAM 3.375 G in DEXTROSE 5% WATER 50 ML IV SCH ×3 (06:41→22:00)
[2022-05-08 06:52] LABS: CHLORIDE 108 mEq/L (98-107)
[2022-05-08 07:15] LABS: FOLIC ACID (FOLATE) SERUM 4.7 ng/mL (>5.38)
[2022-05-08 08:00] VITALS: BP 119/60
[2022-05-08] MEDS: PAROXETINE HCL 10MG TABLET PO SCH (09:00)
[2022-05-08] MEDS: DOCUSATE SODIUM 100MG CAPSULE PO SCH (09:44)
[2022-05-08] MEDS: MAGNESIUM OXIDE 400MG TABLET PO SCH (09:45)
[2022-05-08] MEDS: POTASSIUM CHLORIDE 10MEQ TABLET SR PO SCH (09:46)
[2022-05-08] MEDS: ALLOPURINOL 100 MG TABLET PO SCH ×2 (09:46→17:36)
[2022-05-08] MEDS: ASPIRIN 81MG EC TABLET PO SCH (09:46)
[2022-05-08] MEDS: ATENOLOL 50 MG TABLET PO SCH (09:47)
[2022-05-08] MEDS ORDERED: FOLIC ACID 1 MG in SODIUM CHLORIDE 0.9% 500 ML IV ONE (15:30)
[2022-05-08 20:07] VITALS: BP 121/56
[2022-05-08] MEDS: FAMOTIDINE 20MG TABLET PO SCH (21:43)
[2022-05-08] MEDS: ATORVASTATIN CALCIUM 10MG TABLET PO SCH (21:43)
[2022-05-09] MEDS: PIPERACILLIN/TAZOBACTAM 3.375 G in DEXTROSE 5% WATER 50 ML IV SCH ×2 (05:44→16:35)
[2022-05-09 08:00] VITALS: BP 117/36
[2022-05-09] MEDS: PAROXETINE HCL 10MG TABLET PO SCH (09:00)
[2022-05-09] MEDS: DOCUSATE SODIUM 100MG CAPSULE PO SCH (09:36)
[2022-05-09] MEDS: ALLOPURINOL 100 MG TABLET PO SCH ×2 (09:37→18:11)
[2022-05-09] MEDS: ASPIRIN 81MG EC TABLET PO SCH (09:37)
[2022-05-09] MEDS: FOLIC ACID 1MG TABLET PO SCH (09:37)
[2022-05-09] MEDS: POTASSIUM CHLORIDE 10MEQ TABLET SR PO SCH (09:37)
[2022-05-09] MEDS: MAGNESIUM OXIDE 400MG TABLET PO SCH (09:37)
[2022-05-09] MEDS: ATENOLOL 50 MG TABLET PO SCH (09:38)
[2022-05-09] MEDS: HYDROCODONE/ACETAMINOPHEN 5/325MG TABLET PO PRN ×2 (09:39→16:38)
[2022-05-09 20:29] VITALS: BP 124/66
[2022-05-09] MEDS: ATORVASTATIN CALCIUM 10MG TABLET PO SCH (21:52)
[2022-05-09] MEDS: METRONIDAZOLE 500MG TABLET PO SCH (21:52)
[2022-05-09] MEDS: AMOXICILLIN 500 MG CAPSULE PO SCH (21:52)
[2022-05-09] MEDS: FAMOTIDINE 20MG TABLET PO SCH (21:52)
[2022-05-10] MEDS: HYDROCODONE/ACETAMINOPHEN 5/325MG TABLET PO PRN ×2 (05:58→17:16)
[2022-05-10] MEDS: METRONIDAZOLE 500MG TABLET PO SCH ×3 (05:58→21:13)
[2022-05-10] MEDS: AMOXICILLIN 500 MG CAPSULE PO SCH ×3 (05:58→21:13)
[2022-05-10 08:00] VITALS: BP 108/51
[2022-05-10] MEDS: MAGNESIUM OXIDE 400MG TABLET PO SCH (09:18)
[2022-05-10] MEDS: ALLOPURINOL 100 MG TABLET PO SCH ×2 (09:18→17:15)
[2022-05-10] MEDS: DOCUSATE SODIUM 100MG CAPSULE PO SCH (09:18)
[2022-05-10] MEDS: ASPIRIN 81MG EC TABLET PO SCH (09:18)
[2022-05-10] MEDS: PAROXETINE HCL 10MG TABLET PO SCH (09:18)
[2022-05-10] MEDS: POTASSIUM CHLORIDE 10MEQ TABLET SR PO SCH (09:18)
[2022-05-10] MEDS: FOLIC ACID 1MG TABLET PO SCH (09:18)
[2022-05-10] MEDS: ATENOLOL 50 MG TABLET PO SCH (09:19)
[2022-05-10] MEDS ORDERED: NALOXONE HCL 0.4MG/ML VIAL IV PRN (15:45)
[2022-05-10 20:00] VITALS: BP 114/57
[2022-05-10] MEDS: FAMOTIDINE 20MG TABLET PO SCH (21:13)
[2022-05-10] MEDS: ATORVASTATIN CALCIUM 10MG TABLET PO SCH (21:13)
[2022-05-10] MEDS: ONDANSETRON HCL 4MG/2ML INJ IV PRN (23:49)
[2022-05-11] MEDS: AMOXICILLIN 500 MG CAPSULE PO SCH ×3 (05:55→20:49)
[2022-05-11] MEDS: METRONIDAZOLE 500MG TABLET PO SCH ×3 (05:55→20:49)
[2022-05-11 06:22] LABS: CHLORIDE 107 mEq/L (98-107)
[2022-05-11 06:38] LABS: BASOPHILS % 0.7 % (0.0-2.0); EOSINOPHILS % 4.1 % (0.0-5.0); HEMATOCRIT. 29.2 % (36.0-48.0); HEMOGLOBIN. 9.3 g/dL (12.0-16.0); LYMPHOCYTES % 23.2 % (20.0-50.0); MEAN CORPUSCULAR HEMOGLOBIN 25.8 pg (28.0-32.0); MEAN CORPUSCULAR VOLUME 81.3 fL (81.0-99.0); MONOCYTES % 10.6 % (2.0-8.0); NEUTROPHILS % 61.4 % (40.0-76.0); PLATELET 427 x1000/uL (130-400); RED BLOOD CELL COUNT 3.59 mill/uL (4.2-5.4); RED CELL DISTRIBUTION WIDTH 19.9 % (11.6-14.6)
[2022-05-11 08:00] VITALS: BP 107/56
[2022-05-11] MEDS: POTASSIUM CHLORIDE 10MEQ TABLET SR PO SCH (08:46)
[2022-05-11] MEDS: DOCUSATE SODIUM 100MG CAPSULE PO SCH (08:46)
[2022-05-11] MEDS: ASPIRIN 81MG EC TABLET PO SCH (08:46)
[2022-05-11] MEDS: FOLIC ACID 1MG TABLET PO SCH (08:46)
[2022-05-11] MEDS: ATENOLOL 50 MG TABLET PO SCH (08:47)
[2022-05-11] MEDS: PAROXETINE HCL 10MG TABLET PO SCH (08:47)
[2022-05-11] MEDS: ALLOPURINOL 100 MG TABLET PO SCH ×2 (08:47→17:16)
[2022-05-11] MEDS: MAGNESIUM OXIDE 400MG TABLET PO SCH (08:47)
[2022-05-11] MEDS: HYDROCODONE/ACETAMINOPHEN 5/325MG TABLET PO PRN ×2 (08:51→17:16)
[2022-05-11] MEDS: ONDANSETRON HCL 4MG/2ML INJ IV PRN ×2 (09:31→17:16)
[2022-05-11 20:00] VITALS: BP 133/63
[2022-05-11] MEDS: ATORVASTATIN CALCIUM 10MG TABLET PO SCH (20:48)
[2022-05-11] MEDS: FAMOTIDINE 20MG TABLET PO SCH (20:48)
[2022-05-12] MEDS: AMOXICILLIN 500 MG CAPSULE PO SCH ×2 (05:08→13:21)
[2022-05-12] MEDS: METRONIDAZOLE 500MG TABLET PO SCH ×2 (05:09→13:21)
[2022-05-12] MEDS: ONDANSETRON HCL 4MG/2ML INJ IV PRN (05:55)
[2022-05-12 08:00] VITALS: BP 122/66
[2022-05-12] MEDS: MAGNESIUM OXIDE 400MG TABLET PO SCH (08:34)
[2022-05-12] MEDS: FOLIC ACID 1MG TABLET PO SCH (08:34)
[2022-05-12] MEDS: ASPIRIN 81MG EC TABLET PO SCH (08:35)
[2022-05-12] MEDS: POTASSIUM CHLORIDE 10MEQ TABLET SR PO SCH (08:35)
[2022-05-12] MEDS: ATENOLOL 50 MG TABLET PO SCH (08:35)
[2022-05-12] MEDS: ALLOPURINOL 100 MG TABLET PO SCH (08:35)
[2022-05-12] MEDS: DOCUSATE SODIUM 100MG CAPSULE PO SCH (08:35)
[2022-05-12] MEDS: PAROXETINE HCL 10MG TABLET PO SCH (08:36)
[2022-05-12] MEDS ORDERED: ONDANSETRON 4MG ODT PO PRN (10:45)
[2022-05-12 13:26] VITALS: BP 126/66
[2022-05-15 05:07] LABS: 25-HYDROXY VITAMIN D3 31 ng/mL (.)
== END 2022-05-12 15:00 | DRG 862 ==
PROVIDERS: ADMIT Physical Medicine & Rehabilitation Spinal Cord Injury Medicine; ATTEND Internal Medicine
DX: T81.41XA Infection following a procedure, superficial incisional surgical site, initial encounter (principal); A41.9 Sepsis, unspecified organism; E43 Unspecified severe protein-calorie malnutrition; E87.1 Hypo-osmolality and hyponatremia; I82.432 Acute embolism and thrombosis of left popliteal vein; K63.2 Fistula of intestine; N17.9 Acute kidney failure, unspecified; N32.1 Vesicointestinal fistula; N39.0 Urinary tract infection, site not specified; T81.30XA Disruption of wound, unspecified, initial encounter; D64.9 Anemia, unspecified; E53.8 Deficiency of other specified B group vitamins; E78.00 Pure hypercholesterolemia, unspecified; F32.A Depression, unspecified; F41.1 Generalized anxiety disorder; I10 Essential (primary) hypertension; M19.90 Unspecified osteoarthritis, unspecified site; Z82.49 Family history of ischemic heart disease and other diseases of the circulatory system; Z86.16 Personal history of COVID-19; Z90.711 Acquired absence of uterus with remaining cervical stump; Z95.828 Presence of other vascular implants and grafts; Z86.718 Personal history of other venous thrombosis and embolism; F09 Unspecified mental disorder due to known physiological condition
CPT/HCPCS: 36415; 80048; 80053; 82306; 82607; 82746; 83735; 84100; 84134; 84443; 85025; 87426; 93970; 97110; 97112; 97116; 97150; 97162; 97166; 97530; 97535; J2270; J2405; J2543; J3475; J3490; J7040; J7060

== ENCOUNTER 2022-05-14 05:29 | Emergency (ER) | payer MEDICARE, MEDICAID ==
[~2022-05-14] VITALS: Ht 165.1 cm; Wt 66.0 kg
[2022-05-14] MEDS ORDERED: ONDANSETRON 4MG ODT PO STA (06:40)
[2022-05-14 07:20] VITALS: BP 124/67
[2022-05-14 08:54] LABS: BASOPHILS % 0.6 % (0.0-2.0); EOSINOPHILS % 1.2 % (0.0-5.0); HEMATOCRIT. 32.7 % (36.0-48.0); HEMOGLOBIN. 10.2 g/dL (12.0-16.0); LYMPHOCYTES % 14.8 % (20.0-50.0); MEAN CORPUSCULAR HEMOGLOBIN 25.9 pg (28.0-32.0); MEAN CORPUSCULAR VOLUME 82.7 fL (81.0-99.0); MONOCYTES % 8.1 % (2.0-8.0); NEUTROPHILS % 75.3 % (40.0-76.0); PLATELET 498 x1000/uL (130-400); RED BLOOD CELL COUNT 3.96 mill/uL (4.2-5.4); RED CELL DISTRIBUTION WIDTH 20.5 % (11.6-14.6)
[2022-05-14 09:01] LABS: CHLORIDE 107 mEq/L (98-107)
[2022-05-14] MEDS ORDERED: ONDANSETRON HCL 4MG/2ML INJ IV STA (09:53)
[2022-05-14] MEDS ORDERED: SODIUM CHLORIDE 0.9% 1,000 ML IV ONE (10:00)
== END 2022-05-14 13:52 | disposition home or self-care (01) ==
LOC: ER 06:13 → EDBEDREQ 11:55 → ER 13:52 → CANBEDREQ 14:05
DX: R53.1 Weakness (principal); R42 Dizziness and giddiness; R11.0 Nausea; E78.00 Pure hypercholesterolemia, unspecified; I10 Essential (primary) hypertension; Z90.710 Acquired absence of both cervix and uterus; Z79.899 Other long term (current) drug therapy
CPT/HCPCS: 36415; 74176; 80053; 85025; 96361; 96374; 99284; J2405; J7030; Q0162

== ENCOUNTER 2022-06-13 09:33 | Inpatient (IN) | payer MEDICARE, MEDICAID ==
[~2022-06-13] VITALS: Ht 167.6 cm; Wt 79.8 kg
[2022-06-13] MEDS ORDERED: SODIUM CHLORIDE 0.9% 1,000 ML IV ONE (11:15)
[2022-06-13] MEDS ORDERED: MORPHINE SULFATE 4 MG/ML CPJ (NOT FOR IM USE) IV STA (11:15)
[2022-06-13 11:42] LABS: BASOPHILS % 0.3 % (0.0-2.0); EOSINOPHILS % 0.1 % (0.0-5.0); LYMPHOCYTES % 11.3 % (20.0-50.0); MEAN CORPUSCULAR HEMOGLOBIN 25.6 pg (28.0-32.0); MEAN CORPUSCULAR VOLUME 79.2 fL (81.0-99.0); MEAN PLATELET VOLUME 7.8 fl (7.4-10.4); NEUTROPHILS % 81.3 % (40.0-76.0); PLATELET 695 x1000/uL (130-400); RED BLOOD CELL COUNT 4.29 mill/uL (4.2-5.4); RED CELL DISTRIBUTION WIDTH 18.8 % (11.6-14.6)
[2022-06-13] MEDS ORDERED: ONDANSETRON HCL 4MG/2ML INJ IV ONE ×2 (11:45→16:45)
[2022-06-13 12:21] LABS: CHLORIDE 99 mEq/L (98-107)
[2022-06-13] MEDS ORDERED: CEFTRIAXONE 1 G PREMIX 50 ML IV NR (14:00)
[2022-06-13] MEDS ORDERED: METRONIDAZOLE 500 MG PREMIX 100 ML IV NR (14:00)
[2022-06-13] MEDS ORDERED: MORPHINE SULFATE 4 MG/ML CPJ (NOT FOR IM USE) IV NR (16:45)
[2022-06-13 17:40] VITALS: BP 129/71
[2022-06-13] MEDS ORDERED: MAGNESIUM/ALUMINUM HYDROXIDE/SIMETHICONE 30ML UDC PO PRN (17:45)
[2022-06-13] MEDS ORDERED: LACTULOSE 20G/30ML UDC PO PRN (17:45)
[2022-06-13] MEDS ORDERED: ZOLPIDEM TARTRATE 5MG TABLET PO PRN (17:45)
[2022-06-13] MEDS ORDERED: CEFTRIAXONE 1 G PREMIX 50 ML IV SCH (17:45)
[2022-06-13] MEDS ORDERED: NALOXONE HCL 0.4MG/ML VIAL IV PRN (18:15)
[2022-06-13 20:00] VITALS: BP 138/72
[2022-06-13] MEDS: ATENOLOL 50 MG TABLET PO SCH (20:15)
[2022-06-13] MEDS: MORPHINE SULFATE 2 MG/ML CPJ (NOT FOR IM USE) IV PRN (20:39)
[2022-06-13] MEDS: ONDANSETRON HCL 4MG/2ML INJ IV PRN (20:39)
[2022-06-14 00:03] VITALS: BP 133/73
[2022-06-14] MEDS: ONDANSETRON HCL 4MG/2ML INJ IV PRN ×4 (00:58→20:16)
[2022-06-14] MEDS: MORPHINE SULFATE 2 MG/ML CPJ (NOT FOR IM USE) IV PRN ×5 (00:59→20:17)
[2022-06-14] MEDS: DEXT 5%/0.45% NACL 1000ML 1,000 ML IV SCH ×2 (02:55→14:49)
[2022-06-14 04:00] VITALS: BP 132/67
[2022-06-14 08:00] VITALS: BP 151/73
[2022-06-14] MEDS: PAROXETINE HCL 10MG TABLET PO SCH (09:00)
[2022-06-14] MEDS: ATENOLOL 50 MG TABLET PO SCH ×2 (10:07→20:16)
[2022-06-14] MEDS: PANTOPRAZOLE SODIUM 40 MG/VIAL IV SCH (10:08)
[2022-06-14 12:00] VITALS: BP 122/80
[2022-06-14] MEDS ORDERED: CEFTRIAXONE 1,000 MG in DEXTROSE 5% WATER 50 ML IV SCH (14:00)
[2022-06-14] MEDS ORDERED: LACTULOSE 20G/30ML UDC PO NR (15:15)
[2022-06-14 16:00] VITALS: BP 143/73
[2022-06-14] MEDS: PIPERACILLIN/TAZOBACTAM 3.375 G in DEXTROSE 5% WATER 50 ML IV SCH (16:29)
[2022-06-14 20:00] VITALS: BP 129/69
[2022-06-15] VITALS: BP 161/87
[2022-06-15] MEDS: CLONIDINE 0.1MG TABLET PO PRN (00:03)
[2022-06-15] MEDS: PIPERACILLIN/TAZOBACTAM 3.375 G in DEXTROSE 5% WATER 50 ML IV SCH ×4 (00:03→21:30)
[2022-06-15] MEDS: DEXT 5%/0.45% NACL 1000ML 1,000 ML IV SCH ×2 (00:03→21:30)
[2022-06-15] MEDS: ONDANSETRON HCL 4MG/2ML INJ IV PRN ×2 (00:17→05:22)
[2022-06-15] MEDS: MORPHINE SULFATE 2 MG/ML CPJ (NOT FOR IM USE) IV PRN ×4 (01:11→22:34)
[2022-06-15 04:00] VITALS: BP 122/48
[2022-06-15] MEDS ORDERED: BUPIVACAINE HCL/PF 0.5% (5MG/ML) 10ML ONE (06:39)
[2022-06-15] MEDS ORDERED: SKIN ADHESIVE 0.7 GM EA TOP ONE (06:40)
[2022-06-15] MEDS ORDERED: ROCURONIUM BROMIDE 10MG/ML VIAL 5ML IV ONE (07:28)
[2022-06-15] MEDS ORDERED: ONDANSETRON HCL 4MG/2ML INJ ONE (07:28)
[2022-06-15] MEDS ORDERED: SUCCINYLCHOLINE CHLORIDE 200MG/10ML IV ONE (07:28)
[2022-06-15] MEDS ORDERED: GLYCOPYRROLATE 0.2 MG/ML 2ML VIAL ONE ×2 (07:29→07:30)
[2022-06-15] MEDS ORDERED: PROPOFOL 200MG/20ML VIAL IV ONE (07:29)
[2022-06-15] MEDS ORDERED: NEOSTIGMINE METHYLSULFATE 1MG/ML 10 ML VIAL ONE (07:29)
[2022-06-15] MEDS ORDERED: MIDAZOLAM HCL 2 MG/2 ML VIAL ONE (07:30)
[2022-06-15] MEDS ORDERED: FENTANYL CITRATE/PF 50MCG/ML 2ML VIAL ONE (07:30)
[2022-06-15 07:31] LABS: INR 1.1; PROTHROMBIN TIME 11.8 sec (9.6-11.0)
[2022-06-15 07:36] LABS: BASOPHILS % 0.1 % (0.0-2.0); EOSINOPHILS % 0.4 % (0.0-5.0); HEMATOCRIT. 31.5 % (36.0-48.0); HEMOGLOBIN. 10.3 g/dL (12.0-16.0); LYMPHOCYTES % 8.1 % (20.0-50.0); MEAN CORPUSCULAR HEMOGLOBIN 25.4 pg (28.0-32.0); MEAN CORPUSCULAR VOLUME 77.9 fL (81.0-99.0); MEAN PLATELET VOLUME 7.5 fl (7.4-10.4); MONOCYTES % 10.5 % (2.0-8.0); NEUTROPHILS % 80.9 % (40.0-76.0); PLATELET 637 x1000/uL (130-400); RED BLOOD CELL COUNT 4.05 mill/uL (4.2-5.4); RED CELL DISTRIBUTION WIDTH 18.5 % (11.6-14.6)
[2022-06-15] MEDS ORDERED: PHENYLEPHRINE HCL 10 MG/ML 1ML (IV VIAL) IV ONE (07:59)
[2022-06-15 08:05] LABS: CHLORIDE 101 mEq/L (98-107)
[2022-06-15 08:14] LABS: PHOSPHORUS 2.9 mg/dL (2.5-4.9)
[2022-06-15] MEDS ORDERED: MEPERIDINE HCL/PF 25MG/ML CPJ IV PRN (08:15)
[2022-06-15] MEDS ORDERED: ONDANSETRON HCL 4MG/2ML INJ IV PRN (08:15)
[2022-06-15] MEDS ORDERED: HYDROMORPHONE HCL/PF 2MG/ML CPJ IV PRN (08:15)
[2022-06-15] MEDS ORDERED: LABETALOL 5MG/ML SYR 20 MG/4 ML SYRINGE IV PRN (08:15)
[2022-06-15] MEDS: ATENOLOL 50 MG TABLET PO SCH ×2 (09:00→21:00)
[2022-06-15] MEDS: PAROXETINE HCL 10MG TABLET PO SCH (09:00)
[2022-06-15] MEDS ORDERED: MAGNESIUM 2 G PREMIX 50 ML IV NR (11:00)
[2022-06-15 12:00] VITALS: BP 98/53
[2022-06-15] MEDS: PANTOPRAZOLE SODIUM 40 MG/VIAL IV SCH (12:20)
[2022-06-15] MEDS: ACETAMINOPHEN 325MG TABLET PO PRN (12:33)
[2022-06-15 16:00] VITALS: BP 103/54
[2022-06-15 20:00] VITALS: BP 99/58
[2022-06-16] VITALS: BP 104/57
[2022-06-16] MEDS: MORPHINE SULFATE 2 MG/ML CPJ (NOT FOR IM USE) IV PRN ×4 (03:44→18:58)
[2022-06-16 04:00] VITALS: BP 105/68
[2022-06-16] MEDS: PIPERACILLIN/TAZOBACTAM 3.375 G in DEXTROSE 5% WATER 50 ML IV SCH ×3 (06:06→21:40)
[2022-06-16 08:00] VITALS: BP 135/70
[2022-06-16] MEDS: PANTOPRAZOLE SODIUM 40 MG/VIAL IV SCH (08:35)
[2022-06-16] MEDS: PAROXETINE HCL 10MG TABLET PO SCH (08:36)
[2022-06-16] MEDS: ATENOLOL 50 MG TABLET PO SCH ×2 (09:00→21:00)
[2022-06-16 12:00] VITALS: BP 98/54
[2022-06-16 16:00] VITALS: BP 90/54
[2022-06-16 20:00] VITALS: BP 103/52
[2022-06-17] VITALS: BP 116/58
[2022-06-17 04:00] VITALS: BP 115/59
[2022-06-17] MEDS: MORPHINE SULFATE 2 MG/ML CPJ (NOT FOR IM USE) IV PRN ×4 (04:51→21:06)
[2022-06-17] MEDS: PIPERACILLIN/TAZOBACTAM 3.375 G in DEXTROSE 5% WATER 50 ML IV SCH ×3 (04:56→21:06)
[2022-06-17 08:00] VITALS: BP 127/61
[2022-06-17] MEDS: PANTOPRAZOLE SODIUM 40 MG/VIAL IV SCH (09:15)
[2022-06-17] MEDS: ATENOLOL 50 MG TABLET PO SCH (09:15)
[2022-06-17] MEDS: PAROXETINE HCL 10MG TABLET PO SCH (09:15)
[2022-06-17 12:00] VITALS: BP 112/55
[2022-06-17] MEDS: ACETAMINOPHEN 325MG TABLET PO PRN (12:25)
[2022-06-17] MEDS: DEXT 5%/0.45% NACL 1000ML 1,000 ML IV SCH ×2 (14:09→21:45)
[2022-06-17 16:00] VITALS: BP 124/64
[2022-06-17 20:00] VITALS: BP 130/63
[2022-06-18] VITALS (7 sets, daily range): BP systolic 106–148; BP diastolic 47–75
[2022-06-18] MEDS: MORPHINE SULFATE 2 MG/ML CPJ (NOT FOR IM USE) IV PRN ×4 (01:38→17:32)
[2022-06-18] MEDS: ATENOLOL 50 MG TABLET PO SCH ×3 (01:47→21:25)
[2022-06-18] MEDS: PIPERACILLIN/TAZOBACTAM 3.375 G in DEXTROSE 5% WATER 50 ML IV SCH ×3 (05:12→22:00)
[2022-06-18] MEDS: PANTOPRAZOLE SODIUM 40 MG/VIAL IV SCH (09:10)
[2022-06-18] MEDS: PAROXETINE HCL 10MG TABLET PO SCH (09:10)
[2022-06-18] MEDS: DEXT 5%/0.45% NACL 1000ML 1,000 ML IV SCH (09:16)
[2022-06-18] MEDS: ONDANSETRON HCL 4MG/2ML INJ IV PRN (21:26)
[2022-06-19] VITALS: BP 161/73
[2022-06-19] MEDS: ACETAMINOPHEN 325MG TABLET PO PRN ×2 (00:41→10:51)
[2022-06-19] MEDS: CLONIDINE 0.1MG TABLET PO PRN (01:05)
[2022-06-19] MEDS: DIPHENHYDRAMINE 50MG/ML VIAL IV PRN (01:44)
[2022-06-19] MEDS: ONDANSETRON HCL 4MG/2ML INJ IV PRN ×3 (01:45→20:44)
[2022-06-19 04:00] VITALS: BP 103/64
[2022-06-19] MEDS: PIPERACILLIN/TAZOBACTAM 3.375 G in DEXTROSE 5% WATER 50 ML IV SCH (05:14)
[2022-06-19 08:00] VITALS: BP 134/70
[2022-06-19] MEDS: DEXT 5%/0.45% NACL 1000ML 1,000 ML IV SCH ×3 (08:00→20:44)
[2022-06-19] MEDS: PAROXETINE HCL 10MG TABLET PO SCH (10:50)
[2022-06-19] MEDS: ATENOLOL 50 MG TABLET PO SCH ×2 (10:50→21:11)
[2022-06-19 12:00] VITALS: BP 137/64
[2022-06-19 16:00] VITALS: BP 114/66
[2022-06-19] MEDS: MAGNESIUM/ALUMINUM HYDROXIDE/SIMETHICONE 30ML UDC PO PRN (17:32)
[2022-06-19 20:00] VITALS: BP 147/72
[2022-06-20] VITALS: BP 143/77
[2022-06-20] MEDS: DIPHENHYDRAMINE 50MG/ML VIAL IV PRN (00:27)
[2022-06-20] MEDS: ONDANSETRON HCL 4MG/2ML INJ IV PRN ×4 (01:59→20:46)
[2022-06-20] MEDS: MAGNESIUM/ALUMINUM HYDROXIDE/SIMETHICONE 30ML UDC PO PRN (02:00)
[2022-06-20 04:00] VITALS: BP 159/80
[2022-06-20] MEDS: DEXT 5%/0.45% NACL 1000ML 1,000 ML IV SCH ×2 (06:44→19:45)
[2022-06-20 08:00] VITALS: BP 153/79
[2022-06-20] MEDS: FAMOTIDINE 20MG/2ML VIAL IV SCH (09:55)
[2022-06-20] MEDS: PAROXETINE HCL 10MG TABLET PO SCH (09:56)
[2022-06-20] MEDS: ATENOLOL 50 MG TABLET PO SCH ×2 (09:56→20:46)
[2022-06-20 10:23] LABS: BASOPHILS % 0.2 % (0.0-2.0); HEMATOCRIT. 31.6 % (36.0-48.0); HEMOGLOBIN. 10.1 g/dL (12.0-16.0); LYMPHOCYTES % 10.9 % (20.0-50.0); MEAN CORPUSCULAR VOLUME 78.7 fL (81.0-99.0); MEAN PLATELET VOLUME 7.2 fl (7.4-10.4); MONOCYTES % 6.2 % (2.0-8.0); NEUTROPHILS % 81.7 % (40.0-76.0); PLATELET 595 x1000/uL (130-400); RED BLOOD CELL COUNT 4.02 mill/uL (4.2-5.4)
[2022-06-20] MEDS: ACETAMINOPHEN 325MG TABLET PO PRN (10:28)
[2022-06-20 11:26] LABS: CHLORIDE 102 mEq/L (98-107)
[2022-06-20 12:00] VITALS: BP 154/80
[2022-06-20] MEDS ORDERED: MAGNESIUM 2 G PREMIX 50 ML IV SCH (12:00)
[2022-06-20 16:00] VITALS: BP 152/81
[2022-06-20] MEDS: PIPERACILLIN/TAZOBACTAM 3.375 G in DEXTROSE 5% WATER 50 ML IV SCH ×2 (17:18→20:56)
[2022-06-20 20:00] VITALS: BP 104/79
[2022-06-21] VITALS: BP 157/83
[2022-06-21] MEDS: ONDANSETRON HCL 4MG/2ML INJ IV PRN ×4 (01:17→20:41)
[2022-06-21] MEDS: DIPHENHYDRAMINE 50MG/ML VIAL IV PRN (01:17)
[2022-06-21] MEDS: PIPERACILLIN/TAZOBACTAM 3.375 G in DEXTROSE 5% WATER 50 ML IV SCH ×3 (05:20→20:52)
[2022-06-21] MEDS: DEXT 5%/0.45% NACL 1000ML 1,000 ML IV SCH ×2 (06:20→16:26)
[2022-06-21 08:00] VITALS: BP 111/75
[2022-06-21] MEDS: PAROXETINE HCL 10MG TABLET PO SCH (09:30)
[2022-06-21] MEDS: FAMOTIDINE 20MG/2ML VIAL IV SCH (09:30)
[2022-06-21] MEDS: ATENOLOL 50 MG TABLET PO SCH ×2 (09:31→20:41)
[2022-06-21] MEDS: ACETAMINOPHEN 325MG TABLET PO PRN ×3 (09:42→20:43)
[2022-06-21 12:00] VITALS: BP 156/83
[2022-06-21 16:00] VITALS: BP 146/73
[2022-06-21 20:00] VITALS: BP 141/76
[2022-06-22] MEDS: DEXT 5%/0.45% NACL 1000ML 1,000 ML IV SCH ×2 (01:45→11:19)
[2022-06-22] MEDS: ONDANSETRON HCL 4MG/2ML INJ IV PRN (03:39)
[2022-06-22 04:00] VITALS: BP 125/73
[2022-06-22] MEDS: PIPERACILLIN/TAZOBACTAM 3.375 G in DEXTROSE 5% WATER 50 ML IV SCH ×2 (05:57→14:20)
[2022-06-22] MEDS: ACETAMINOPHEN 325MG TABLET PO PRN ×3 (09:09→18:28)
[2022-06-22] MEDS: PAROXETINE HCL 10MG TABLET PO SCH (09:09)
[2022-06-22] MEDS: ATENOLOL 50 MG TABLET PO SCH (09:09)
[2022-06-22] MEDS: FAMOTIDINE 20MG/2ML VIAL IV SCH (09:10)
[2022-06-22] MEDS: MAGNESIUM/ALUMINUM HYDROXIDE/SIMETHICONE 30ML UDC PO PRN (11:12)
[2022-06-22 12:00] VITALS: BP 144/75
[2022-06-22 12:25] LABS: BASOPHILS % 0.1 % (0.0-2.0); EOSINOPHILS % 1.2 % (0.0-5.0); HEMATOCRIT. 29.4 % (36.0-48.0); HEMOGLOBIN. 9.5 g/dL (12.0-16.0); LYMPHOCYTES % 7.6 % (20.0-50.0); MEAN CORPUSCULAR HEMOGLOBIN 25.3 pg (28.0-32.0); MEAN CORPUSCULAR VOLUME 78.2 fL (81.0-99.0); MONOCYTES % 6.8 % (2.0-8.0); NEUTROPHILS % 84.3 % (40.0-76.0); PLATELET 554 x1000/uL (130-400); RED BLOOD CELL COUNT 3.76 mill/uL (4.2-5.4); RED CELL DISTRIBUTION WIDTH 18.2 % (11.6-14.6)
[2022-06-22 12:59] LABS: CHLORIDE 98 mEq/L (98-107)
[2022-06-22 16:00] VITALS: BP 131/70
[2022-06-22] MEDS ORDERED: POTASSIUM CHLORIDE INJ 40 MEQ in DEXT 5% WATER 250 ML IV ONE (16:15)
[2022-06-22] MEDS: MAGNESIUM 2 G PREMIX 50 ML IV NR (17:56)
[2022-06-22] MEDS ORDERED: KCL 20MEQ/100ML X 2 FOR TOTAL KCL 40MEQ/200ML IV SCH (18:00)
[2022-06-22 20:00] VITALS: BP 101/66
[2022-06-23] VITALS: BP 130/54
[2022-06-23 04:00] VITALS: BP 144/63
[2022-06-23 07:28] LABS: HEMATOCRIT. 32.7 % (36.0-48.0); HEMOGLOBIN. 10.3 g/dL (12.0-16.0); MEAN CORPUSCULAR HEMOGLOBIN 25.1 pg (28.0-32.0); MEAN CORPUSCULAR VOLUME 79.7 fL (81.0-99.0); MEAN PLATELET VOLUME 7.4 fl (7.4-10.4); PLATELET 577 x1000/uL (130-400); RED CELL DISTRIBUTION WIDTH 18.1 % (11.6-14.6)
[2022-06-23 07:40] LABS: CHLORIDE 99 mEq/L (98-107)
[2022-06-23 08:00] VITALS: BP 142/54
[2022-06-23] MEDS: FAMOTIDINE 20MG/2ML VIAL IV SCH (08:31)
[2022-06-23] MEDS: ATENOLOL 50 MG TABLET PO SCH ×2 (08:32→21:00)
[2022-06-23] MEDS: PAROXETINE HCL 10MG TABLET PO SCH (08:32)
[2022-06-23] MEDS: DEXT 5%/0.45% NACL KCL 20MEQ/L 1,000 ML IV SCH ×2 (08:33→17:51)
[2022-06-23] MEDS: MAGNESIUM 2 G PREMIX 50 ML IV NR (08:35)
[2022-06-23] MEDS: PIPERACILLIN/TAZOBACTAM 3.375 G in DEXTROSE 5% WATER 50 ML IV SCH ×2 (09:55→13:49)
[2022-06-23 11:09] LABS: PLATELET ESTIMATE INCREASED
[2022-06-23 12:00] VITALS: BP 105/50
[2022-06-23] MEDS ORDERED: MAGNESIUM 4 G PREMIX 100 ML IV SCH (13:00)
[2022-06-23 16:00] VITALS: BP 95/52
[2022-06-23] MEDS: METRONIDAZOLE 500 MG PREMIX 100 ML IV SCH ×2 (17:13→22:54)
[2022-06-23] MEDS: CEFEPIME 1,000 MG in DEXTROSE 5% WATER 50 ML IV SCH (18:32)
[2022-06-23] MEDS: VANCOMYCIN 1000MG/20ML ORAL SOLN PO SCH (18:33)
[2022-06-23] MEDS: ONDANSETRON HCL 4MG/2ML INJ IV PRN (18:34)
[2022-06-23 20:00] VITALS: BP 102/49
[2022-06-23] MEDS ORDERED: PIPERACILLIN/TAZOBACTAM 3.375 G in DEXTROSE 5% WATER 50 ML IV SCH (22:00)
[2022-06-23] MEDS: ACETAMINOPHEN 325MG TABLET PO PRN (22:54)
[2022-06-24] VITALS: BP 134/67
[2022-06-24 04:00] VITALS: BP 134/60
[2022-06-24] MEDS: CEFEPIME 1,000 MG in DEXTROSE 5% WATER 50 ML IV SCH ×2 (04:36→16:39)
[2022-06-24] MEDS: DEXT 5%/0.45% NACL KCL 20MEQ/L 1,000 ML IV SCH ×2 (04:36→14:06)
[2022-06-24] MEDS: VANCOMYCIN 1000MG/20ML ORAL SOLN PO SCH ×4 (05:30→19:03)
[2022-06-24] MEDS: METRONIDAZOLE 500 MG PREMIX 100 ML IV SCH ×3 (05:30→22:00)
[2022-06-24 08:00] VITALS: BP 107/53
[2022-06-24 08:52] LABS: MEAN CORPUSCULAR VOLUME 77.9 fL (81.0-99.0); MEAN PLATELET VOLUME 7.3 fl (7.4-10.4); PLATELET 430 x1000/uL (130-400); RED BLOOD CELL COUNT 3.33 mill/uL (4.2-5.4); RED CELL DISTRIBUTION WIDTH 18.1 % (11.6-14.6)
[2022-06-24] MEDS: ATENOLOL 50 MG TABLET PO SCH ×2 (09:00→21:00)
[2022-06-24] MEDS: FAMOTIDINE 20MG/2ML VIAL IV SCH (09:04)
[2022-06-24] MEDS: PAROXETINE HCL 10MG TABLET PO SCH (09:05)
[2022-06-24 09:16] LABS: CHLORIDE 100 mEq/L (98-107)
[2022-06-24 09:24] LABS: HEMATOCRIT. 25.9 % (36.0-48.0); HEMOGLOBIN. 8.3 g/dL (12.0-16.0)
[2022-06-24] MEDS: ACETAMINOPHEN 325MG TABLET PO PRN ×3 (11:44→19:03)
[2022-06-24 12:00] VITALS: BP 112/54
[2022-06-24] MEDS ORDERED: POTASSIUM CHLORIDE 20MEQ TABLET SR PO NR ×2 (12:30→14:30)
[2022-06-24 13:08] LABS: PLATELET ESTIMATE INCREASED
[2022-06-24 16:00] VITALS: BP 102/51
[2022-06-24] MEDS: ONDANSETRON HCL 4MG/2ML INJ IV PRN ×2 (16:38→21:51)
[2022-06-24 20:00] VITALS: BP 117/80
[2022-06-24] MEDS ORDERED: NALOXONE HCL 0.4MG/ML VIAL IV PRN (20:00)
[2022-06-24] MEDS: DIPHENHYDRAMINE 50MG/ML VIAL IV PRN (21:52)
[2022-06-24] MEDS: HYDROCODONE/ACETAMINOPHEN 5/325MG TABLET PO PRN (21:53)
[2022-06-25] VITALS: BP 95/49
[2022-06-25] MEDS: DEXT 5%/0.45% NACL KCL 20MEQ/L 1,000 ML IV SCH ×3 (00:30→22:00)
[2022-06-25 04:00] VITALS: BP 101/55
[2022-06-25] MEDS: CEFEPIME 1,000 MG in DEXTROSE 5% WATER 50 ML IV SCH ×2 (04:26→16:54)
[2022-06-25 04:33] LABS: HEMATOCRIT. 26.7 % (36.0-48.0); HEMOGLOBIN. 8.3 g/dL (12.0-16.0); MEAN CORPUSCULAR HEMOGLOBIN 24.3 pg (28.0-32.0); MEAN CORPUSCULAR VOLUME 78.1 fL (81.0-99.0); MEAN PLATELET VOLUME 7.7 fl (7.4-10.4); PLATELET 416 x1000/uL (130-400); RED BLOOD CELL COUNT 3.41 mill/uL (4.2-5.4); RED CELL DISTRIBUTION WIDTH 18.3 % (11.6-14.6)
[2022-06-25 04:54] LABS: CHLORIDE 105 mEq/L (98-107)
[2022-06-25] MEDS: VANCOMYCIN 1000MG/20ML ORAL SOLN PO SCH ×5 (06:00→23:55)
[2022-06-25] MEDS: METRONIDAZOLE 500 MG PREMIX 100 ML IV SCH ×3 (06:32→21:59)
[2022-06-25] MEDS: HYDROCODONE/ACETAMINOPHEN 5/325MG TABLET PO PRN ×2 (06:34→13:12)
[2022-06-25 08:00] VITALS: BP 98/53
[2022-06-25] MEDS: PAROXETINE HCL 10MG TABLET PO SCH (08:54)
[2022-06-25] MEDS: FAMOTIDINE 20MG/2ML VIAL IV SCH (08:54)
[2022-06-25] MEDS: ATENOLOL 50 MG TABLET PO SCH ×2 (08:55→21:00)
[2022-06-25 12:00] VITALS: BP 104/52
[2022-06-25] MEDS ORDERED: SODIUM PHOS,M-BASIC-D-BASIC 30 MM in DEXT 5% WATER 500 ML IV NR (12:00)
[2022-06-25 13:05] LABS: PLATELET ESTIMATE INCREASED
[2022-06-25 16:00] VITALS: BP 107/62
[2022-06-25 20:00] VITALS: BP 98/58
[2022-06-25] MEDS: ACETAMINOPHEN 325MG TABLET PO PRN (21:41)
[2022-06-26] VITALS (7 sets, daily range): BP systolic 108–137; BP diastolic 50–63
[2022-06-26] MEDS: CEFEPIME 1,000 MG in DEXTROSE 5% WATER 50 ML IV SCH ×2 (04:11→17:15)
[2022-06-26] MEDS: METRONIDAZOLE 500 MG PREMIX 100 ML IV SCH ×3 (05:43→20:32)
[2022-06-26] MEDS: VANCOMYCIN 1000MG/20ML ORAL SOLN PO SCH ×3 (06:00→18:15)
[2022-06-26] MEDS: DEXT 5%/0.45% NACL KCL 20MEQ/L 1,000 ML IV SCH ×2 (07:06→15:45)
[2022-06-26 07:22] LABS: BASOPHILS % 0.4 % (0.0-2.0); EOSINOPHILS % 2.8 % (0.0-5.0); HEMATOCRIT. 25.3 % (36.0-48.0); HEMOGLOBIN. 8.2 g/dL (12.0-16.0); LYMPHOCYTES % 8.2 % (20.0-50.0); MEAN CORPUSCULAR HEMOGLOBIN 25.3 pg (28.0-32.0); MEAN PLATELET VOLUME 7.7 fl (7.4-10.4); MONOCYTES % 6.6 % (2.0-8.0); PLATELET 462 x1000/uL (130-400); RED BLOOD CELL COUNT 3.25 mill/uL (4.2-5.4); RED CELL DISTRIBUTION WIDTH 17.8 % (11.6-14.6)
[2022-06-26 08:17] LABS: CHLORIDE 107 mEq/L (98-107)
[2022-06-26 08:23] LABS: PHOSPHORUS 1.3 mg/dL (2.5-4.9)
[2022-06-26] MEDS: FAMOTIDINE 20MG/2ML VIAL IV SCH (10:48)
[2022-06-26] MEDS: PAROXETINE HCL 10MG TABLET PO SCH (10:49)
[2022-06-26] MEDS: ATENOLOL 50 MG TABLET PO SCH ×2 (10:50→21:00)
[2022-06-26] MEDS ORDERED: MAGNESIUM 4 G PREMIX 100 ML IV ONE (11:45)
[2022-06-26] MEDS ORDERED: SODIUM PHOS,M-BASIC-D-BASIC 30 MM in DEXT 5% WATER 500 ML IV NR (11:45)
[2022-06-26] MEDS: HYDROCODONE/ACETAMINOPHEN 5/325MG TABLET PO PRN (13:28)
[2022-06-26] MEDS ORDERED: [UNRECOGNIZED DRUG - REMARK] XX SCH (15:00)
[2022-06-26] MEDS ORDERED: MAGNESIUM 4 G PREMIX 100 ML IV NR (16:00)
[2022-06-27] VITALS: BP 126/66
[2022-06-27] MEDS: DEXT 5%/0.45% NACL KCL 20MEQ/L 1,000 ML IV SCH ×3 (02:30→21:53)
[2022-06-27 04:00] VITALS: BP 133/69
[2022-06-27] MEDS: CEFEPIME 1,000 MG in DEXTROSE 5% WATER 50 ML IV SCH ×2 (04:08→16:30)
[2022-06-27] MEDS: VANCOMYCIN 1000MG/20ML ORAL SOLN PO SCH ×4 (06:00→18:00)
[2022-06-27] MEDS: METRONIDAZOLE 500 MG PREMIX 100 ML IV SCH ×3 (06:01→21:51)
[2022-06-27] MEDS: ONDANSETRON HCL 4MG/2ML INJ IV PRN (06:04)
[2022-06-27 07:29] LABS: BASOPHILS % 0.3 % (0.0-2.0); HEMOGLOBIN. 8.6 g/dL (12.0-16.0); LYMPHOCYTES % 12.9 % (20.0-50.0); MEAN CORPUSCULAR HEMOGLOBIN 25.5 pg (28.0-32.0); MEAN CORPUSCULAR VOLUME 77.5 fL (81.0-99.0); MEAN PLATELET VOLUME 7.8 fl (7.4-10.4); NEUTROPHILS % 73.8 % (40.0-76.0); PLATELET 496 x1000/uL (130-400); RED BLOOD CELL COUNT 3.36 mill/uL (4.2-5.4); RED CELL DISTRIBUTION WIDTH 17.8 % (11.6-14.6)
[2022-06-27 08:00] VITALS: BP 100/62
[2022-06-27] MEDS: PAROXETINE HCL 10MG TABLET PO SCH (08:58)
[2022-06-27] MEDS: FAMOTIDINE 20MG/2ML VIAL IV SCH (08:58)
[2022-06-27] MEDS: ATENOLOL 50 MG TABLET PO SCH ×2 (09:00→21:51)
[2022-06-27 09:36] LABS: CHLORIDE 107 mEq/L (98-107)
[2022-06-27 09:44] LABS: PHOSPHORUS 2.2 mg/dL (2.5-4.9)
[2022-06-27 12:00] VITALS: BP 116/58
[2022-06-27] MEDS ORDERED: SODIUM PHOS,M-BASIC-D-BASIC 20 MM in DEXT 5% WATER 243.3333 ML IV NR (12:00)
[2022-06-27] MEDS: MAGNESIUM 2 G PREMIX 50 ML IV NR ×2 (12:00→22:07)
[2022-06-27] MEDS ORDERED: LIDOCAINE HCL/PF 1% 10 MG/ML 5ML VIAL ONE (13:19)
[2022-06-27 16:00] VITALS: BP 130/64
[2022-06-27 20:00] VITALS: BP 134/67
[2022-06-27] MEDS: DIPHENHYDRAMINE 50MG/ML VIAL IV PRN (22:07)
[2022-06-28] VITALS: BP 137/65
[2022-06-28] MEDS: HYDROCODONE/ACETAMINOPHEN 5/325MG TABLET PO PRN ×2 (02:49→10:39)
[2022-06-28 04:00] VITALS: BP 123/63
[2022-06-28] MEDS: CEFEPIME 1,000 MG in DEXTROSE 5% WATER 50 ML IV SCH (05:29)
[2022-06-28] MEDS: METRONIDAZOLE 500 MG PREMIX 100 ML IV SCH (05:30)
[2022-06-28] MEDS: DEXT 5%/0.45% NACL KCL 20MEQ/L 1,000 ML IV SCH (05:30)
[2022-06-28] MEDS: VANCOMYCIN 1000MG/20ML ORAL SOLN PO SCH ×2 (05:31)
[2022-06-28 08:00] VITALS: BP 128/53
[2022-06-28] MEDS: PAROXETINE HCL 10MG TABLET PO SCH (08:22)
[2022-06-28] MEDS: FAMOTIDINE 20MG/2ML VIAL IV SCH (08:22)
[2022-06-28] MEDS: ATENOLOL 50 MG TABLET PO SCH (08:23)
[2022-06-28 09:17] VITALS: BP 129/67
[2022-06-28 10:39] VITALS: BP 129/67
== END 2022-06-28 10:52 | DRG 853 ==
LOC: ER 09:33 → EDBEDREQ 14:23 → 6EST 14:23 → EDBEDREQ 14:26 → EDBEDREQTM 14:26 → CANRESERV 16:36 → ENRESERV 16:36
PROVIDERS: ADMIT Internal Medicine; ATTEND Internal Medicine
PROC: 0WUF0JZ Supplement Abdominal Wall with Synthetic Substitute, Open Approach (ICD-10-PCS; principal; 2022-06-15)
PROC: 02HV33Z Insertion of Infusion Device into Superior Vena Cava, Percutaneous Approach (ICD-10-PCS; 2022-06-27)
PROC: B5181ZA Fluoroscopy of Superior Vena Cava using Low Osmolar Contrast, Guidance (ICD-10-PCS; 2022-06-27)
PROC: B548ZZA Ultrasonography of Superior Vena Cava, Guidance (ICD-10-PCS; 2022-06-27)
DX: A41.9 Sepsis, unspecified organism (principal); E43 Unspecified severe protein-calorie malnutrition; K43.0 Incisional hernia with obstruction, without gangrene; K57.32 Diverticulitis of large intestine without perforation or abscess without bleeding; N39.0 Urinary tract infection, site not specified; T81.30XA Disruption of wound, unspecified, initial encounter; K56.7 Ileus, unspecified; L02.211 Cutaneous abscess of abdominal wall; K43.6 Other and unspecified ventral hernia with obstruction, without gangrene; K43.2 Incisional hernia without obstruction or gangrene; Z20.822 Contact with and (suspected) exposure to COVID-19; F41.1 Generalized anxiety disorder; I10 Essential (primary) hypertension; E78.00 Pure hypercholesterolemia, unspecified; K21.9 Gastro-esophageal reflux disease without esophagitis; M10.9 Gout, unspecified; F41.9 Anxiety disorder, unspecified; E78.5 Hyperlipidemia, unspecified; E87.6 Hypokalemia; E87.8 Other disorders of electrolyte and fluid balance, not elsewhere classified; F32.A Depression, unspecified; Z86.718 Personal history of other venous thrombosis and embolism; Z95.828 Presence of other vascular implants and grafts; Z82.49 Family history of ischemic heart disease and other diseases of the circulatory system; Z93.1 Gastrostomy status; Z90.711 Acquired absence of uterus with remaining cervical stump; Y84.8 Other medical procedures as the cause of abnormal reaction of the patient, or of later complication, without mention of misadventure at the time of the procedure; Y92.89 Other specified places as the place of occurrence of the external cause
CPT/HCPCS: 36415; 36573; 71045; 74018; 74176; 80048; 80053; 83605; 83735; 84100; 84132; 85025; 87426; 93005; 97116; 97162; 97530; 99285; A6261; C1725; C1781; C1893; C9113; J0330; J0692; J0696; J1200; J2250; J2270; J2370; J2405; J2543; J2704; J2710; J3010; J3370; J3475; J3480; J3490; J7030; J7060

== ENCOUNTER → 2022-09-27 | Outpatient (CLI) | payer MEDICARE, MEDICAID | END | disposition home or self-care (01) | LOC: US 09:53 | PROVIDERS: ATTEND Internal Medicine | DX: R60.0 Localized edema (principal) | CPT/HCPCS: 93970 ==

== ENCOUNTER 2022-11-09 07:00 | Inpatient (IN) | payer MEDICARE, MEDICAID ==
[~2022-11-09] VITALS: Ht 165.1 cm; Wt 68.0 kg
[2022-11-09 08:47] LABS: BASOPHILS % 0.2 % (0.0-2.0); EOSINOPHILS % 0.1 % (0.0-5.0); HEMATOCRIT. 30.2 % (36.0-48.0); HEMOGLOBIN. 9.4 g/dL (12.0-16.0); LYMPHOCYTES % 14.7 % (20.0-50.0); MEAN CORPUSCULAR HEMOGLOBIN 24.4 pg (28.0-32.0); MEAN CORPUSCULAR VOLUME 78.4 fL (81.0-99.0); MEAN PLATELET VOLUME 7.8 fl (7.4-10.4); MONOCYTES % 9.9 % (2.0-8.0); NEUTROPHILS % 75.1 % (40.0-76.0); PLATELET 536 x1000/uL (130-400); RED BLOOD CELL COUNT 3.84 mill/uL (4.2-5.4); RED CELL DISTRIBUTION WIDTH 17.8 % (11.6-14.6)
[2022-11-09 08:56] LABS: CHLORIDE 102 mEq/L (98-107)
[2022-11-09 09:13] LABS: INR 1.1; PROTHROMBIN TIME 11.6 sec (9.6-11.0)
[2022-11-09 10:52] LABS: CLARITY URINE CLEAR (CLEAR); COLOR URINE YELLOW (YELLOW); KETONES URINE NEGATIVE (NEGATIVE); LEUKOCYTE ESTERASE URINE TRACE (NEGATIVE); NITRITE URINE NEGATIVE (NEGATIVE); OCCULT BLOOD URINE NEGATIVE (NEGATIVE); PH URINE 6.5 (4.5-8.0); PROTEIN URINE NEGATIVE (NEGATIVE); SPECIFIC GRAVITY URINE 1.012 (1.005-1.030)
[2022-11-09 13:35] VITALS: BP 124/64
[2022-11-09] MEDS ORDERED: DIATR MEGLU/DIATRIZOATE SOLN 30ML PO NR (14:30)
[2022-11-09] MEDS ORDERED: GUAIFENESIN 200MG/10ML SUGAR FREE UDC PO PRN (14:30)
[2022-11-09] MEDS ORDERED: ONDANSETRON HCL 4MG/2ML INJ IV PRN (14:30)
[2022-11-09] MEDS ORDERED: DOCUSATE SODIUM 100MG CAPSULE PO PRN (14:30)
[2022-11-09] MEDS ORDERED: IPRATROPIUM/ALBUTEROL 0.5-3(2.5)MG/3ML NEB NEB PRN (14:30)
[2022-11-09] MEDS ORDERED: ACETAMINOPHEN 325MG TABLET PO PRN ×2 (14:30)
[2022-11-09] MEDS ORDERED: MAGNESIUM/ALUMINUM HYDROXIDE/SIMETHICONE 30ML UDC PO PRN (14:30)
[2022-11-09] MEDS ORDERED: DEXT 5%/0.9% NACL 1,000 ML IV SCH (14:30)
[2022-11-09] MEDS ORDERED: CLONIDINE 0.1MG TABLET PO PRN (14:30)
[2022-11-09] MEDS ORDERED: IPRATROPIUM BROMIDE (0.02%) 0.5MG/2.5ML NEB HHN PRN (15:45)
[2022-11-09] MEDS ORDERED: ALBUTEROL (0.083%) 2.5MG/3ML NEB HHN PRN (15:45)
[2022-11-09] MEDS ORDERED: NALOXONE HCL 0.4MG/ML VIAL IV PRN (15:45)
[2022-11-09 16:00] VITALS: BP 109/61
[2022-11-09] MEDS ORDERED: CEFEPIME 1,000 MG in DEXTROSE 5% WATER 50 ML IV SCH (16:00)
[2022-11-09] MEDS ORDERED: METRONIDAZOLE 500 MG PREMIX 100 ML IV SCH ×2 (17:00→20:00)
[2022-11-09 18:43] VITALS: BP 124/69
[2022-11-09 20:00] VITALS: BP 119/66
[2022-11-09] MEDS: SODIUM CHLORIDE 0.9% 1,000 ML IV SCH (20:48)
[2022-11-09] MEDS: HYDROCODONE/ACETAMINOPHEN 5/325MG TABLET PO PRN (21:37)
[2022-11-10] VITALS: BP 122/68
[2022-11-10 04:00] VITALS: BP 115/63
[2022-11-10] MEDS: HYDROCODONE/ACETAMINOPHEN 5/325MG TABLET PO PRN ×3 (05:37→21:11)
[2022-11-10 06:47] LABS: BASOPHILS % 0.4 % (0.0-2.0); EOSINOPHILS % 0.7 % (0.0-5.0); HEMATOCRIT. 29.8 % (36.0-48.0); HEMOGLOBIN. 9.6 g/dL (12.0-16.0); MEAN CORPUSCULAR HEMOGLOBIN 24.8 pg (28.0-32.0); MEAN CORPUSCULAR VOLUME 77.4 fL (81.0-99.0); MEAN PLATELET VOLUME 8.1 fl (7.4-10.4); MONOCYTES % 9.4 % (2.0-8.0); NEUTROPHILS % 76.5 % (40.0-76.0); PLATELET 467 x1000/uL (130-400); RED BLOOD CELL COUNT 3.85 mill/uL (4.2-5.4); RED CELL DISTRIBUTION WIDTH 17.7 % (11.6-14.6)
[2022-11-10 08:00] VITALS: BP 80/48
[2022-11-10 09:22] LABS: CHLORIDE 101 mEq/L (98-107)
[2022-11-10 11:48] VITALS: BP 113/58
[2022-11-10 16:00] VITALS: BP 84/49
[2022-11-10] MEDS: SODIUM CHLORIDE 0.9% 1,000 ML IV SCH (21:12)
[2022-11-11] VITALS: BP 119/63
[2022-11-11 04:00] VITALS: BP 133/58
[2022-11-11] MEDS: HYDROCODONE/ACETAMINOPHEN 5/325MG TABLET PO PRN ×3 (04:13→20:50)
[2022-11-11 08:00] VITALS: BP 98/56
[2022-11-11] MEDS ORDERED: DIATR MEGLU/DIATRIZOATE SOLN 120ML ONE (10:48)
[2022-11-11] MEDS: SODIUM CHLORIDE 0.9% 1,000 ML IV SCH (10:49)
[2022-11-11 12:00] VITALS: BP 110/55
[2022-11-11 16:00] VITALS: BP 102/69
[2022-11-11 20:00] VITALS: BP 124/64
[2022-11-12] VITALS: BP 103/56
[2022-11-12] MEDS: SODIUM CHLORIDE 0.9% 1,000 ML IV SCH ×2 (00:20→14:29)
[2022-11-12 04:00] VITALS: BP 101/63
[2022-11-12] MEDS: HYDROCODONE/ACETAMINOPHEN 5/325MG TABLET PO PRN ×2 (06:40→14:11)
[2022-11-12 07:04] LABS: BASOPHILS % 0.5 % (0.0-2.0); EOSINOPHILS % 2.6 % (0.0-5.0); HEMATOCRIT. 26.3 % (36.0-48.0); HEMOGLOBIN. 8.7 g/dL (12.0-16.0); LYMPHOCYTES % 21.1 % (20.0-50.0); MEAN CORPUSCULAR HEMOGLOBIN 25.6 pg (28.0-32.0); MEAN CORPUSCULAR VOLUME 77.7 fL (81.0-99.0); MEAN PLATELET VOLUME 8.1 fl (7.4-10.4); MONOCYTES % 12.7 % (2.0-8.0); NEUTROPHILS % 63.1 % (40.0-76.0); PLATELET 448 x1000/uL (130-400); RED BLOOD CELL COUNT 3.39 mill/uL (4.2-5.4); RED CELL DISTRIBUTION WIDTH 17.1 % (11.6-14.6)
[2022-11-12 07:51] LABS: CHLORIDE 105 mEq/L (98-107)
[2022-11-12 07:55] LABS: PHOSPHORUS 3.3 mg/dL (2.5-4.9)
[2022-11-12 08:00] VITALS: BP 85/51
[2022-11-12 12:00] VITALS: BP 106/53
[2022-11-12 15:49] VITALS: BP 104/58
[2022-11-12 15:53] VITALS: BP 104/58
== END 2022-11-12 17:50 | disposition home health service (06) | DRG 394 ==
LOC: ER 07:00 → MICUSO 10:21 → EDBEDREQ 10:39 → 7WST 14:50 → 6EST 11-10 23:20
PROVIDERS: ADMIT Internal Medicine; ATTEND Internal Medicine
DX: K94.01 Colostomy hemorrhage (principal); K63.2 Fistula of intestine; N32.1 Vesicointestinal fistula; D50.9 Iron deficiency anemia, unspecified; D72.829 Elevated white blood cell count, unspecified; E78.00 Pure hypercholesterolemia, unspecified; I10 Essential (primary) hypertension; F41.9 Anxiety disorder, unspecified; K21.9 Gastro-esophageal reflux disease without esophagitis; E88.09 Other disorders of plasma-protein metabolism, not elsewhere classified; Z86.718 Personal history of other venous thrombosis and embolism; Z90.710 Acquired absence of both cervix and uterus; Z79.899 Other long term (current) drug therapy; Y83.9 Surgical procedure, unspecified as the cause of abnormal reaction of the patient, or of later complication, without mention of misadventure at the time of the procedure; G89.18 Other acute postprocedural pain
CPT/HCPCS: 36415; 74176; 80048; 80053; 81003; 83735; 84100; 84145; 84439; 84443; 85025; 86850; 86900; 93005; 99285; C1893; J0692; J3490; J7030; J7060; Q9963

== ENCOUNTER 2022-11-24 08:40 | Emergency (ER) | payer MEDICARE, MEDICAID ==
[~2022-11-24] VITALS: Ht 172.7 cm; Wt 77.0 kg
[2022-11-24] MEDS ORDERED: MORPHINE SULFATE 4 MG/ML CPJ (NOT FOR IM USE) IV STA (09:19)
[2022-11-24] MEDS ORDERED: ONDANSETRON HCL 4MG/2ML INJ IV STA (09:19)
[2022-11-24 10:11] LABS: BASOPHILS % 0.6 % (0.0-2.0); EOSINOPHILS % 1.6 % (0.0-5.0); HEMATOCRIT. 28.3 % (36.0-48.0); HEMOGLOBIN. 8.9 g/dL (12.0-16.0); LYMPHOCYTES % 20.6 % (20.0-50.0); MEAN CORPUSCULAR HEMOGLOBIN 24.5 pg (28.0-32.0); MEAN CORPUSCULAR VOLUME 78.5 fL (81.0-99.0); MEAN PLATELET VOLUME 6.9 fl (7.4-10.4); MONOCYTES % 9.3 % (2.0-8.0); NEUTROPHILS % 67.9 % (40.0-76.0); PLATELET 555 x1000/uL (130-400); RED BLOOD CELL COUNT 3.61 mill/uL (4.2-5.4); RED CELL DISTRIBUTION WIDTH 17.2 % (11.6-14.6)
[2022-11-24 10:29] LABS: CHLORIDE 107 mEq/L (98-107)
[2022-11-24 10:39] LABS: CLARITY URINE CLEAR (CLEAR); COLOR URINE YELLOW (YELLOW); KETONES URINE NEGATIVE (NEGATIVE); LEUKOCYTE ESTERASE URINE NEGATIVE (NEGATIVE); NITRITE URINE NEGATIVE (NEGATIVE); OCCULT BLOOD URINE NEGATIVE (NEGATIVE); PH URINE 6.5 (4.5-8.0); PROTEIN URINE NEGATIVE (NEGATIVE); SPECIFIC GRAVITY URINE 1.016 (1.005-1.030)
[2022-11-24 12:30] VITALS: BP 119/68
[2022-11-24] MEDS ORDERED: MORPHINE SULFATE 4 MG/ML CPJ (NOT FOR IM USE) IV NR (12:30)
[2022-11-24] MEDS ORDERED: ONDANSETRON HCL 4MG/2ML INJ IV NR (12:30)
== END 2022-11-24 19:06 | disposition left against medical advice (07) ==
LOC: ER 08:40
DX: R10.31 Right lower quadrant pain (principal); D64.9 Anemia, unspecified; N32.1 Vesicointestinal fistula; F41.9 Anxiety disorder, unspecified; K21.9 Gastro-esophageal reflux disease without esophagitis; I10 Essential (primary) hypertension; Z90.710 Acquired absence of both cervix and uterus; Z79.899 Other long term (current) drug therapy
CPT/HCPCS: 36415; 80053; 81003; 83690; 85025; 93005; 96374; 96375; 99284; J2270; J2405; 74177